=== PATIENT | female | born 1950 | race Caucasian/White ===

== ENCOUNTER 2018-06-24 08:36 | Emergency (ER) | payer MEDICARE, OTHER ==
[~2018-06-24] VITALS: Ht 162.6 cm; Wt 56.7 kg
[~2018-06-24 08:36] MED LIST: ACHD5005 PO; AMLO5TAB2 PO; CITA10TA70 PO; DOXY100C2 PO; FOLI1TAB24 PO; FURO40TA PO; HYDR-3714 PO; LEVO125T PO; MULT1CAP27 PO; NADO40TA PO; OMEP40CA36 PO; ROPI0.5T PO; SPIR100T37 PO; URSO300C9 PO
[2018-06-24] MEDS ORDERED: fentaNYL INJECTION 100 MCG/2 ML AMP ONE (08:39)
--- OUTSIDE RECORDS SUMMARY | 2018-06-24 08:43 | XMS REPORT | Clinical Summary ---
Author Author [facility] Organization [facility] Address Unknown Phone Unavailable Care Team Providers Care Drop Forge Operator Name Role Phone Gunnar Starks MD Unavailable Colin Child DO PCP Karla Stapleton RN Unavailable Unavailable Julio Khanna RN Unavailable Unavailable Meagan Hagen RN Unavailable Unavailable Samuel Garcia MD Unavailable Roseann Gorman RN Unavailable Unavailable Ashley Riley RN Unavailable Unavailable Karl Springer MD Unavailable Joann Kay Unavailable Leah Teresa RN Unavailable Unavailable Source Comments Some departments are not documenting in the electronic medical record. If you do not see the information that you expected, contact Release of Information in the Health Information Management department at [phone] for further assistance in locating additional records.[facility] Allergies Comments Active Allergy Reactions Severity Noted Date Amoxicillin-Pot DIARRHEA, Low 12/02/2017 Clavulanate NAUSEA AND VOMITING Codeine STOMACH Low 01/31/2013 UPSET, NAUSEA AND VOMITING Pt reported flu-like symptoms and feeling sick to her stomach Levofloxacin STOMACH Low 07/28/2017 UPSET, SEE COMMENTS Sulfa (Sulfonamide HIVES, RASH Medium 01/31/2013 Antibiotics) Medications End Date Status Medication Sig Dispensed Refills Start Date Active levothyroxine (SYNTHROID) Take 125 mcg 0 125 mcg tablet by mouth daily 30 minutes before breakfast. Active ursodiol (ACTIGALL) 300 Take 300 mg 0 mg capsule by mouth twice daily. Active cycloSPORINE (RESTASIS) Apply 1 Drop 0 0.05 % ophthalmic to both eyes emulsion twice daily. Active Lactoperoxi-Gluc Oxid-Pot Apply inside 0 Thio (BIOTENE mouth every ORALBALANCE) gel bedtime for dry mouth. Active acetaminophen (TYLENOL) Take 1 Tab by 30 Tab 0 500 mg tablet mouth every 6 6 hours as needed for Pain. Max of 4,000 mg of acetaminophen in 24 hours. Active prednisone (DELTASONE) 10 Take 10 mg by 0 mg tablet mouth daily with breakfast. Active cholecalciferol (VITAMIN Take 1,000 0 D-3) 1,000 units tablet Units by mouth daily. Active propranolol (INDERAL) 10 Take 10 mg by 0 mg tablet mouth twice daily. Active hydroxychloroquine Take 300 mg 0 (PLAQUENIL) 200 mg tablet by mouth daily. Take with food. Active pentoxifylline ER Take 400 mg 0 (TRENTAL) 400 mg tablet by mouth twice daily. Take with food. Active prednisolone acetate Apply 1 drop 0 (PRED FORTE) 1 % to both eyes ophthalmic suspension four times daily. Active gabapentin (NEURONTIN) Take 2 0 100 mg capsule capsules by 8 mouth three times daily. Active cetirizine (ZYRTEC) 10 mg Take 10 mg by 0 tablet mouth every morning. 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), 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), CREST (calcinosis, Raynaud's phenomenon, esophageal dysfunction, sclerodactyly, telangiectasia) (HCC) Active Problems Problem Noted Date CREST (calcinosis, Raynaud's phenomenon, esophageal dysfunction, 01/11/2018 sclerodactyly, telangiectasia) Non-pressure chronic ulcer of other part of left lower leg with necrosis of 12/02/2017 muscle Non-pressure chronic ulcer of other part of right lower leg with fat layer 12/02/2017 exposed Lymphedema 12/02/2017 Acute kidney failure 11/02/2017 Cellulitis 10/22/2017 Multiple fractures of pelvis 01/21/2016 Sialadenitis 11/22/2014 Overview: Bilateral, stone on CT on right with bilateral duct dilation throughout Sjogren's syndrome 11/22/2014 Knee pain, left anterior 12/26/2013 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 - Infectious disease was consulted to manage appropriate antibiotic therapy treatment - Changed Vanco to dapto due to DAX - Adult psychiatry was consulted to manage the patient with new onset delirium and altered mental status - Patient was started on risperidone in house to manage delirium with ambien and trazodone as sleep aids - Ambien was d/c due to adverse reaction - Medicine was consulted to manage a mildly increased Cr during the post operative period - Creatnine was continually elevated after fluid boluses - Norvasc was d/c'd - Rehab medicine was consulted - Rehab did not accept for IRF After discussing with family and patient. It was found best to have patient d/c home with home health. Patient is to continue abx therapy for 4 weeks. Outlined in d/c instructions. Discharged with drain in place. Tolerating PO diet Working well with PT Non-union of fracture 02/06/2013 Wound infection 01/31/2013 Encounters Care Team Description Date Type Specialty Keith Hackett MD 06/03/2018 Hospital Burn Surgery / Burn Care Encounter Ramona Bassett, RN Follow-up Phone Call 05/25/2018 Telephone Burn Surgery / Burn Care Keith Hackett MD 05/20/2018 Hospital Burn Surgery / Burn Care Encounter Ramona Bassett RN Follow Up 05/20/2018 Telephone Burn Surgery / Burn Care Ramona Bassett RN General Question 05/17/2018 Telephone Burn Surgery / Burn Care Keith Hackett MD 05/10/2018 Hospital Burn Surgery / Burn Care Encounter Keith Hackett MD 04/20/2018 Hospital Burn Surgery / Burn Care Encounter Keith Hackett MD General Question 04/14/2018 Telephone Burn Surgery / Burn Care Ramona Bassett RN Dressing Change 04/08/2018 Telephone Burn Surgery / Burn Care Keith Hackett MD 04/04/2018 Hospital Burn Surgery / Burn Care Encounter from Last 3 Months Immunizations Name Dates Previously Given Next Due Flu Vaccine Trivalent=>3 02/09/2013 Yo (Preservative Free) Family History Medical History Relation Name Comments Arthritis-rheumatoid Other Melanoma Neg Hx Relation Name Status Comments Other Social History Date Tobacco Use Types Packs/Day Years Used Never Smoker Smokeless Tobacco: Never Used Tobacco Cessation: Counseling Given: Yes Alcohol Use Drinks/Week oz/Week Comments No 0 Standard 0.0 drinks or equivalent Sex Assigned at Date Recorded Not on file Industry Job Start Date Occupation Not on file Not on file Not on file Travel End Travel History Travel Start No recent travel history available. Last Filed Vital Signs Time Taken Vital Sign Reading 06/03/2018 10:47 AM EQUIPMENT TESTER Blood Pressure 114/67 06/03/2018 10:47 AM EQUIPMENT TESTER Pulse 74 06/03/2018 10:47 AM EQUIPMENT TESTER Temperature 36.3 C (97.4 F) 06/03/2018 10:47 AM EQUIPMENT TESTER Respiratory Rate 18 06/03/2018 10:47 AM EQUIPMENT TESTER Oxygen Saturation 98% - Inhaled Oxygen - Concentration 01/25/2018 10:05 AM CDT Weight 65.8 kg (145 lb) 01/25/2018 10:05 AM CDT Height 154.9 cm (5' 1") 01/25/2018 10:05 AM CDT Body Mass Index 27.4 Plan of Treatment Health Maintenance Due Date Last Done Comments PHYSICAL (COMPREHENSIVE) 1956 EXAM DTAP/TDAP VACCINES (1 - 12/16/1967 Tdap) BREAST CANCER SCREENING 1989 COLORECTAL CANCER 12/16/1999 SCREENING SHINGLES RECOMBINANT 12/16/1999 VACCINE (1 of 2) OSTEOPOROSIS 2014 SCREENING/MONITORING PNEUMONIA (PCV13/PPSV23) 2014 VACCINES (1 of 2 - PCV13) INFLUENZA VACCINE 12/01/2017 02/09/2013, 03/01/2003 HEPATITIS C SCREENING Completed 02/07/2013 Results Not on filefrom Last 3 Months Insurance Payer Benefit Subscriber ID Type Phone Address Plan / Group MEDICARE MEDICARE xxxxxxxxxxx Medicare PART A AND B AETNA AETNA xxxxxxxxxx SUPPLEMENT Advance Directives Patient has advance care planning documents, and code status on file. For more information, please contact: [facility] [address] [place] [address] Date Inactivated Comments Code Status Date Activated 11/02/2017 5:04 PM Full Code 10/22/2017 7:13 PM Provider has discussed Code Status Yes w/Patient or Family? 01/24/2016 5:50 PM Full Code 01/21/2016 2:21 PM Provider has discussed Code Status No, discussion not w/Patient or Family? necessary based on Dx 02/28/2013 7:30 PM Full Code 02/20/2013 12:30 PM Provider has discussed Code Status Yes w/Patient or Family? 02/10/2013 2:50 PM Full Code 02/06/2013 4:59 PM Provider has discussed Code Status Yes w/Patient or Family?
--- OUTSIDE RECORDS SUMMARY | 2018-06-24 08:43 | XMS REPORT | Encounter Summary ---
Author Author [facility] Organization [facility] Address Unknown Phone Unavailable Care Team Providers Care Hedis Analyst Name Role Phone Gunnar Starks MD Unavailable Colin Child DO PCP Karla Stapleton RN Unavailable Unavailable Julio Khanna RN Unavailable Unavailable Meagan Hagen RN Unavailable Unavailable Samuel Garcia MD Unavailable Roseann Gorman RN Unavailable Unavailable Ashley Riley RN Unavailable Unavailable Karl Springer MD Unavailable Joann Kay Unavailable Leah Teresa RN Unavailable Unavailable Reason for Referral * Consult, Test & Treat (Routine) Referred By Contact Referred To Contact Status Reason Specialty Diagnoses / Procedures Keith Hackett MD [address] [place] [id number] [facility] [address] [place] [address] New Request Specialty Services Diagnoses Required 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, Raynaud's phenomenon, esophageal dysfunction, sclerodactyly, telangiectasia) (HCC) Reason for Visit * Reason Comments Wound Encounter Details Care Team Description Date Type Department Keith Hackett MD [address] [place] [address] [phone] 06/03/2018 Hospital Outpatient Burn and Wound Encounter Clinic [facility] [address] [place] [address] Social History Date Tobacco Use Types Packs/Day Years Used Never Smoker Smokeless Tobacco: Never Used Alcohol Use Drinks/Week oz/Week Comments No 0 Standard 0.0 drinks or equivalent Sex Assigned at Date Recorded Not on file Industry Job Start Date Occupation Not on file Not on file Not on file Travel End Travel History Travel Start No recent travel history available. as of this encounter Last Filed Vital Signs Time Taken Vital Sign Reading 06/03/2018 10:47 AM DIRECTOR OF STRATEGIC ALLIANCES Blood Pressure 114/67 06/03/2018 10:47 AM DIRECTOR OF STRATEGIC ALLIANCES Pulse 74 06/03/2018 10:47 AM DIRECTOR OF STRATEGIC ALLIANCES Temperature 36.3 C (97.4 F) 06/03/2018 10:47 AM DIRECTOR OF STRATEGIC ALLIANCES Respiratory Rate 18 06/03/2018 10:47 AM DIRECTOR OF STRATEGIC ALLIANCES Oxygen Saturation 98% - Inhaled Oxygen - Concentration - Weight - - Height - - Body Mass Index - in this encounter Functional Status Date of Assessment Functional Status Response 05/20/2018 Does the patient have a hearing impairment: No 05/20/2018 Does the patient have a visual impairment: Yes 05/20/2018 Does the patient have impaired ambulation: Yes 05/20/2018 Does the patient have an activity of daily living No (ADL) impairment: 05/20/2018 Does the patient have an instrumental activity of Yes daily living (IADL) impairment: Date of Assessment Cognitive Status Response 05/20/2018 Does the patient have a cognitive impairment: No as of this encounter Discharge Instructions * Patient Instructions* Keith Hackett MD - 06/03/2018 11:20 AM DIRECTOR OF STRATEGIC ALLIANCES Clean and dry Topical lidocaine 4% cream: Apply for 10-15 minutes, gently remove excess leaving very thin amount in ulcer base, dress as below Hydrofera blue ready: Please ensure that the plastic backing faces AWAY from the ulcer bed abd pads to cover Secure with 3M lite toes to knees Change dressings MWF Elevation RTC one week CTOR OF STRATEGIC ALLIANCES in this encounter Medications at Time of Discharge Start Date End Date Medication Sig Dispensed Refills 01/23/2016 acetaminophen (TYLENOL) Take 1 Tab by 30 Tab 0 500 mg tablet mouth every 6 hours as needed for Pain. Max of 4,000 mg of acetaminophen in 24 hours. 06/01/2018 ALPRAZolam (XANAX) 0.5 mg 0 tablet cetirizine (ZYRTEC) 10 mg Take 10 mg by 0 tablet mouth every morning. cholecalciferol (VITAMIN Take 1,000 0 D-3) 1,000 units tablet Units by mouth daily. cycloSPORINE (RESTASIS) Apply 1 Drop 0 0.05 % ophthalmic to both eyes emulsion twice daily. 11/02/2017 gabapentin (NEURONTIN) Take 2 0 100 mg capsule capsules by mouth three times daily. 06/01/2018 HYDROcodone/acetaminophen 0 (NORCO) 5/325 mg tablet hydroxychloroquine Take 300 mg 0 (PLAQUENIL) 200 mg tablet by mouth daily. Take with food. Lactoperoxi-Gluc Oxid-Pot Apply inside 0 Thio (BIOTENE mouth every ORALBALANCE) gel bedtime for dry mouth. levothyroxine (SYNTHROID) Take 125 mcg 0 125 mcg tablet by mouth daily 30 minutes before breakfast. 05/25/2018 morphine (MSIR) 2 mg/mL 0 oral solution oxyCODONE SR (OXYCONTIN) Take 20 mg by 0 20 mg tablet mouth every 6 hours pentoxifylline ER Take 400 mg 0 (TRENTAL) 400 mg tablet by mouth twice daily. Take with food. prednisolone acetate Apply 1 drop 0 (PRED FORTE) 1 % to both eyes ophthalmic suspension four times daily. prednisone (DELTASONE) 10 Take 10 mg by 0 mg tablet mouth daily with breakfast. propranolol (INDERAL) 10 Take 10 mg by 0 mg tablet mouth twice daily. ursodiol (ACTIGALL) 300 Take 300 mg 0 mg capsule by mouth twice daily. as of this encounter Progress Notes * Keith Hackett MD - 06/03/2018 11:06 AM DIRECTOR OF STRATEGIC ALLIANCES Name:Marlene Harvey :1950 Age: 67 y.o. Date of Service: 06/03/2018 Subjective: CREST with bilateral leg ulcers to the level of fat Past Medical History: Diagnosis Date Chronically dry eyes Cirrhosis of liver (HCC) Dry mouth Erosive gastritis Esophageal varices (HCC) Fracture GERD (gastroesophageal reflux disease) GI bleeding Hypothyroid Immune disorder (HCC) Osteopenia Raynaud's disease Sjogren's syndrome (HCC) Unspecified deficiency anemia Past Surgical History: Procedure Laterality Date HX WRIST FRACTURE SURGERY 1989 VESICOVAGINAL FISTULA REPAIR 2001 FEMUR FRACTURE SURGERY Left 07/2012 with harware removal 01/2013 HX TONSILLECTOMY family history includes Arthritis-rheumatoid in an other family member. Social History Socioeconomic History Marital status: Spouse name: Not on file Number of children: Not on file Years of education: Not on file Highest education level: Not on file Social Needs Financial resource strain: Not on file Food insecurity - worry: Not on file Food insecurity - inability: Not on file Transportation needs - medical: Not on file Transportation needs - non-medical: Not on file Occupational History Not on file Tobacco Use Smoking status: Never Smoker Smokeless tobacco: Never Used Substance and Sexual Activity Alcohol use: No Alcohol/week: 0.0 oz Drug use: No Sexual activity: Not on file Other Topics Concern Not on file Social History Narrative Not on file History of Present IllnessMarlene Harvey is a 67 y.o. female. Tolerating dressings. Hydrofera blue is improving the ulcer base with granulation tissue and less slough. Lidocaine 4% topically with dressing changes. Elevation. Moisturizing cream to perulcer skin. Had recent fall with concussion, facial bruising. Review of Systems Skin: Positive for wound. All other systems reviewed and are negative. Objective: acetaminophen (TYLENOL) 500 mg tablet Take 1 Tab by mouth every 6 hours as needed for Pain. Max of 4,000 mg of acetaminophen in 24 hours. ALPRAZolam (XANAX) 0.5 mg tablet cetirizine (ZYRTEC) 10 mg tablet Take 10 mg by mouth every morning. cholecalciferol (VITAMIN D-3) 1,000 units tablet Take 1,000 Units by mouth daily. cycloSPORINE (RESTASIS) 0.05 % ophthalmic emulsion Apply 1 Drop to both eyes twice daily. gabapentin (NEURONTIN) 100 mg capsule Take 2 capsules by mouth three times daily. HYDROcodone/acetaminophen (NORCO) 5/325 mg tablet hydroxychloroquine (PLAQUENIL) 200 mg tablet Take 300 mg by mouth daily. Take with food. Lactoperoxi-Gluc Oxid-Pot Thio (BIOTENE ORALBALANCE) gel Apply inside mouth every bedtime for dry mouth. levothyroxine (SYNTHROID) 125 mcg tablet Take 125 mcg by mouth daily 30 minutes before breakfast. morphine (MSIR) 2 mg/mL oral solution oxyCODONE SR (OXYCONTIN) 20 mg tablet Take 20 mg by mouth every 6 hours pentoxifylline ER (TRENTAL) 400 mg tablet Take 400 mg by mouth twice daily. Take with food. prednisolone acetate (PRED FORTE) 1 % ophthalmic suspension Apply 1 drop to both eyes four times daily. prednisone (DELTASONE) 10 mg tablet Take 10 mg by mouth daily with breakfast. propranolol (INDERAL) 10 mg tablet Take 10 mg by mouth twice daily. ursodiol (ACTIGALL) 300 mg capsule Take 300 mg by mouth twice daily. Vitals: 06/03/18 1047 BP: 114/67 Pulse: 74 Resp: 18 Temp: 36.3 C (97.4 F) TempSrc: Oral SpO2: 98% There is no height or weight on file to calculate BMI. Physical Exam Constitutional: She is oriented to person, place, and time. She appears well- developed. HENT: Head: Normocephalic and atraumatic. Eyes: Conjunctivae are normal. Pupils are equal, round, and reactive to light. Neck: Normal range of motion. Neck supple. Cardiovascular: Normal rate and regular rhythm. Pulmonary/Chest: Effort normal. Abdominal: Soft. Musculoskeletal: Normal range of motion. She exhibits edema. Neurological: She is alert and oriented to person, place, and time. Skin: Skin is warm and dry. Emerging granulation tissue with less slough Facial bruising with recent fall Psychiatric: She has a normal mood and affect. Her behavior is normal. Judgment and thought content normal. Wounds (NOT for Pressure Injuries) 12/02/17 1017 Left;Lower Leg Ulcer (not from pressure) (Active) 12/02/17 1017 Leg Wound Orientation: Left;Lower Wound Type: Ulcer (not from pressure) Wound Type:: Wound Description (Comments): Wound Image 06/03/2018 11:00 AM Wound Base Assessment Granulation;Moist;Slough;Penaloza 06/03/2018 11:00 AM Surrounding Skin Assessment Macerated 06/03/2018 11:00 AM Wound Site Closure None 05/10/2018 10:00 AM Wound Drainage Amount Copious 06/03/2018 11:00 AM Wound Drainage Description Serosanguineous 06/03/2018 11:00 AM Wound Dressing Status Changed 06/03/2018 11:00 AM Wound Dressing and / or Treatment Hydrofera Blue Ready 06/03/2018 11:00 AM Wound Length (cm) 15 cm 06/03/2018 11:00 AM Wound Width (cm) 20 cm 06/03/2018 11:00 AM Wound Depth (cm) 0.3 cm 06/03/2018 11:00 AM Wound Surface Area (cm^2) 300 cm^2 06/03/2018 11:00 AM Wound Volume (cm^3) 90 cm^3 06/03/2018 11:00 AM Wound Healing % (Wound Team Only) -100 06/03/2018 11:00 AM Wound Status (Wound Team Only) Being Treated 05/20/2018 10:00 AM Undermining in CM (Wound Team Only) 0 cm 05/20/2018 10:00 AM Tunneling in CM (Wound Team Only) 0 cm 05/20/2018 10:00 AM Number of days: 183 Wounds (NOT for Pressure Injuries) 12/02/17 1018 Right;Lower Leg Ulcer (not from pressure) (Active) 12/02/17 1018 Leg Wound Orientation: Right;Lower Wound Type: Ulcer (not from pressure) Wound Type:: Wound Description (Comments): Wound Image 06/03/2018 11:00 AM Wound Base Assessment Moist;Slough;Penaloza;Granulation 06/03/2018 11:00 AM Surrounding Skin Assessment Macerated 06/03/2018 11:00 AM Wound Site Closure None 06/03/2018 11:00 AM Wound Drainage Amount Copious 06/03/2018 11:00 AM Wound Drainage Description Serosanguineous 06/03/2018 11:00 AM Wound Dressing Status Changed 06/03/2018 11:00 AM Wound Dressing and / or Treatment Hydrofera Blue Ready 06/03/2018 11:00 AM Wound Length (cm) 16 cm 06/03/2018 11:00 AM Wound Width (cm) 17 cm 06/03/2018 11:00 AM Wound Depth (cm) 0.5 cm 06/03/2018 11:00 AM Wound Surface Area (cm^2) 272 cm^2 06/03/2018 11:00 AM Wound Volume (cm^3) 136 cm^3 06/03/2018 11:00 AM Wound Healing % (Wound Team Only) -769.57 06/03/2018 11:00 AM Wound Status (Wound Team Only) Being Treated 06/03/2018 11:00 AM Undermining in CM (Wound Team Only) 0 cm 05/20/2018 10:00 AM Tunneling in CM (Wound Team Only) 0 cm 05/20/2018 10:00 AM Bone/Muscle/Tendon Exposed (Wound Team Only) Tendon 05/20/2018 10:00 AM Associated Signs and Symptoms (Wound Team Only) Swelling 04/20/2018 10:00 AM Number of days: 183 Assessment and Plan: Clean and dry Topical lidocaine 4% cream: Apply for 10-15 minutes, gently remove excess leaving very thin amount in ulcer base, dress as below Hydrofera blue ready: Please ensure that the plastic backing faces AWAY from the ulcer bed abd pads to cover Secure with 3M lite toes to knees Change dressings MWF Elevation RTC one week CTOR OF STRATEGIC ALLIANCES in this encounter Plan of Treatment Order Schedule Name Priority Associated Diagnoses Ordered: 06/03/2018 AMB REFERRAL TO HOME CARE Routine 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
--- OUTSIDE RECORDS SUMMARY | 2018-06-24 08:43 | XMS REPORT | Encounter Summary ---
Author Author [facility] Organization [facility] Address Unknown Phone Unavailable Care Team Providers Care Supervising Appraiser Name Role Phone Gunnar Starks MD Unavailable Colin Child DO PCP Karla Stapleton RN Unavailable Unavailable Julio Khanna RN Unavailable Unavailable Meagan Hagen RN Unavailable Unavailable Samuel Garcia MD Unavailable Roseann Gorman RN Unavailable Unavailable Ashley Riley RN Unavailable Unavailable Karl Springer MD Unavailable Joann Kay Unavailable Leah Teresa RN Unavailable Unavailable Reason for Visit * Reason Comments Follow-up Phone Call Encounter Details Care Team Description Date Type Department Ramona Bassett, CRISS Follow-up Phone Call 05/25/2018 Telephone Outpatient [facility] [address] [place] [address] Social History Date Tobacco Use Types Packs/Day [...] travel history available. as of this encounter Functional Status Date of Assessment [...] cognitive impairment: No as of this encounter Miscellaneous Notes * Telephone Encounter - Ramona Bassett RN - 05/25/2018 2:16 PM CEMETERY MANAGER Called and spoke with gina about wounds and pain management. Reema said that patient still is in a lot of pain during dressing changes even with the xanax added in. Spoke to patient and this am and when asked about the lidocaine gel, the stated they hadn't gotten that. Instructed them to talk to the pharmacy about this since hopefully it will help. 1420 called brenda and he stated he was able to get to lidocaine. Also informed him to bring it with him to the appt here on Wednesday. Thank you Jen Bassett RN, BSN Wound /Ostomy Team Pager [phone] After Hours Wound/Ostomy team pager [phone] TERY MANAGER in this encounter Plan of Treatment Not on fileas of this encounter Visit Diagnoses Not on filein this encounter
--- OUTSIDE RECORDS SUMMARY | 2018-06-24 08:43 | XMS REPORT | Encounter Summary ---
Author Author [facility] Organization [facility] Address Unknown Phone Unavailable Care Team Providers Care Field Naturalist Name Role Phone Gunnar Starks MD Unavailable Colin Child DO PCP Karla Stapleton RN Unavailable Unavailable Julio Khanna RN Unavailable Unavailable Meagan Hagen RN Unavailable Unavailable Samuel Garcia MD Unavailable Roseann Gorman RN Unavailable Unavailable Ashley Riley RN Unavailable Unavailable Karl Springer MD Unavailable Joann Kay Unavailable Leah Teresa RN Unavailable Unavailable Reason for Visit * Reason Comments Follow Up Encounter Details Care Team Description Date Type Department Ramona Bassett, CRISS Follow Up 05/20/2018 Telephone Outpatient Burn and Wound Clinic [facility] [id number] [address] [place] [address] Social History Date Tobacco Use [...] Telephone Encounter - Ramona Bassett RN - 05/20/2018 3:[address] Child's office called stated that they ordered to 4% lidocaine to be applied to wounds on days that the hydrophera blue is changed and also ordered Xanax for the patient to take prior to the dressing change. HH updated ODIAL AIDE in this encounter Plan of Treatment Not on fileas of this encounter Visit Diagnoses Not on filein this encounter
--- OUTSIDE RECORDS SUMMARY | 2018-06-24 08:43 | XMS REPORT | Encounter Summary ---
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) Lymphedema CREST (calcinosis, Raynaud's phenomenon, esophageal dysfunction, sclerodactyly, telangiectasia) (HCC) Reason for Visit * Reason Comments Wound f/u visit Encounter Details Care Team Description Date Type Department Keith Hackett MD [address] [place] [address] [phone] 05/20/2018 Hospital Outpatient Burn and Wound Encounter Clinic [facility] G567 [address] [place] [address] Social History Date Tobacco Use Types Packs/Day [...] Vital Signs Time Taken Vital Sign Reading 05/20/2018 9:58 AM SECURITY ORDERLY Blood Pressure 113/62 05/20/2018 9:58 AM SECURITY ORDERLY Pulse 78 05/20/2018 9:58 AM SECURITY ORDERLY Temperature 36.5 C (97.7 F) 05/20/2018 9:58 AM SECURITY ORDERLY Respiratory Rate 18 05/20/2018 9:58 AM SECURITY ORDERLY Oxygen Saturation 93% - Inhaled Oxygen - Concentration - Weight [...] * Patient Instructions* Keith Hackett MD - 05/20/2018 10:38 AM SECURITY ORDERLY Elevation Hydrofera blue ready MWF May change abd pads daily as needed: Recommend Optilock rather than abds if available Consider Lidocaine 4% with dressing changes topically with dressing removal PCP to manage pain issues 3M lite or equivalent compression RTC one week RITY ORDERLY in this encounter Medications at Time of Discharge Start Date End Date Medication Sig Dispensed Refills 01/23/2016 acetaminophen (TYLENOL) Take 1 Tab by 30 Tab 0 500 mg tablet mouth every 6 hours as needed for Pain. Max of 4,000 mg of acetaminophen in 24 hours. cetirizine (ZYRTEC) 10 mg Take 10 mg by 0 tablet mouth every morning. cholecalciferol (VITAMIN Take 1,000 0 D-3) 1,000 units tablet Units by mouth daily. cycloSPORINE (RESTASIS) Apply 1 Drop 0 0.05 % ophthalmic to both eyes emulsion twice daily. 11/02/2017 gabapentin (NEURONTIN) Take 2 0 100 mg capsule capsules by mouth three times daily. hydroxychloroquine Take 300 mg 0 (PLAQUENIL) 200 mg tablet by mouth daily. Take with food. Lactoperoxi-Gluc Oxid-Pot Apply inside 0 Thio (BIOTENE mouth every ORALBALANCE) gel bedtime for dry mouth. levothyroxine (SYNTHROID) Take 125 mcg 0 125 mcg tablet by mouth daily 30 minutes before breakfast. pentoxifylline ER Take 400 mg 0 (TRENTAL) [...] 0 mg capsule by mouth twice daily. 11/11/2017 06/03/2018 oxyCODONE SR (OXYCONTIN) Take 1 tablet 0 40 mg tablet by mouth twice daily as of this encounter Progress Notes * Keith Hackett MD - 05/20/2018 10:13 AM SECURITY ORDERLY Name:Marlene Harvey :1950 Age: 67 y.o. Date of Service: 05/20/2018 Subjective: CREST Bilateral LE ulcers to the level of fat Lymphedema Past Medical History: Diagnosis Date Chronically dry eyes Cirrhosis of liver (HCC) Dry mouth Erosive gastritis Esophageal varices (HCC) Fracture GERD (gastroesophageal reflux disease) GI bleeding Hypothyroid Immune disorder (HCC) Osteopenia Raynaud's disease Sjogren's syndrome (HCC) Unspecified deficiency anemia Past Surgical History: Procedure Laterality Date HX WRIST FRACTURE SURGERY 1989 VESICOVAGINAL FISTULA REPAIR 2002 FEMUR FRACTURE SURGERY Left 07/2012 with harware [...] IllnessMarlene Harvey is a 67 y.o. female. Having pain with dressing changes. Discussed need for pain control with PCP and options of Lidocaine liquid 4% topically for dressing changes and increasing the dosage of Neurontin. Currently on high doses of narcotics. Discussed with PCP and pain management will be addressed by him. Granulation base much improved with Hydrofera blue. Review of Systems Constitutional: Positive for activity change. Musculoskeletal: Positive for gait problem. All other systems reviewed and are negative. Objective: acetaminophen (TYLENOL) 500 mg tablet Take 1 Tab by mouth every 6 hours as needed for Pain. Max of 4,000 mg of acetaminophen in 24 hours. cetirizine (ZYRTEC) 10 mg tablet Take 10 mg by mouth every morning. cholecalciferol (VITAMIN D-3) 1,000 units tablet Take 1,000 Units by mouth daily. cycloSPORINE (RESTASIS) 0.05 % ophthalmic emulsion Apply 1 Drop to both eyes twice daily. gabapentin (NEURONTIN) 100 mg capsule Take 2 capsules by mouth three times daily. hydroxychloroquine (PLAQUENIL) 200 mg tablet Take 300 mg by mouth daily. Take with food. Lactoperoxi-Gluc Oxid-Pot Thio (BIOTENE ORALBALANCE) gel Apply inside mouth every bedtime for dry mouth. levothyroxine (SYNTHROID) 125 mcg tablet Take 125 mcg by mouth daily 30 minutes before breakfast. oxyCODONE SR (OXYCONTIN) 40 mg tablet Take 1 tablet by mouth twice daily pentoxifylline ER (TRENTAL) 400 mg tablet Take [...] 300 mg by mouth twice daily. Vitals: 05/20/18 0958 BP: 113/62 Pulse: 78 Resp: 18 Temp: 36.5 C (97.7 F) SpO2: 93% There is no height or weight on file to calculate BMI. Physical Exam Constitutional: She is oriented to person, place, and time. She appears well- developed. HENT: Head: Normocephalic and atraumatic. Eyes: Conjunctivae are normal. Pupils are equal, round, and reactive to light. Neck: Normal range of motion. Cardiovascular: Normal rate and regular rhythm. Pulmonary/Chest: Effort normal. Abdominal: Soft. Musculoskeletal: Normal range of motion. She exhibits edema. Neurological: She is alert and oriented to person, place, and time. Skin: Skin is warm and dry. Granulation base with yellow slough Psychiatric: She has a normal mood and affect. Her behavior is normal. Judgment and thought content normal. Wounds (NOT for Pressure Injuries) 12/02/17 1017 Left;Lower Leg Ulcer (not from pressure) (Active) 12/02/17 1017 Leg Wound Orientation: Left;Lower Wound Type: Ulcer (not from pressure) Wound Type:: Wound Description (Comments): Wound Image 05/20/2018 10:00 AM Wound Base Assessment Granulation;Penaloza;Slough 05/20/2018 10:00 AM Surrounding Skin Assessment Macerated 05/20/2018 10:00 AM Wound Site Closure None 05/10/2018 10:00 AM Wound Drainage Amount Large 05/20/2018 10:00 AM Wound Drainage Description Serosanguineous 05/20/2018 10:00 AM Wound Dressing Status Changed 05/20/2018 10:00 AM Wound Dressing and / or Treatment Hydrofera Blue Ready;Abdominal Pad 05/10/2018 10 :00 AM Wound Length (cm) 16 cm 05/20/2018 10:00 AM Wound Width (cm) 20 cm 05/20/2018 10:00 AM Wound Depth (cm) 0.6 cm 05/20/2018 10:00 AM Wound Surface Area (cm^2) 320 cm^2 05/20/2018 10:00 AM Wound Volume (cm^3) 192 cm^3 05/20/2018 10:00 AM Wound Healing % (Wound Team Only) -326.67 05/20/2018 10:00 AM Wound Status (Wound Team Only) Being Treated 05/20/2018 10:00 AM Undermining in CM (Wound Team Only) 0 cm 05/20/2018 10:00 AM Tunneling in CM (Wound Team Only) 0 cm 05/20/2018 10:00 AM Number of days: 169 Wounds (NOT for Pressure Injuries) 12/02/17 1018 Right;Lower Leg Ulcer (not from pressure) (Active) 12/02/17 1018 Leg Wound Orientation: Right;Lower Wound Type: Ulcer (not from pressure) Wound Type:: Wound Description (Comments): Wound Image 05/20/2018 10:00 AM Wound Base Assessment Penaloza;Slough;Realitos;Granulation 05/20/2018 10:00 AM Surrounding Skin Assessment Macerated 05/20/2018 10:00 AM Wound Site Closure None 05/10/2018 10:00 AM Wound Drainage Amount Large 05/20/2018 10:00 AM Wound Drainage Description Serosanguineous 05/20/2018 10:00 AM Wound Dressing Status Changed 05/20/2018 10:00 AM Wound Dressing and / or Treatment Hydrofera Blue Ready;Abdominal Pad 05/10/2018 10 :00 AM Wound Length (cm) 15.4 cm 05/20/2018 10:00 AM Wound Width (cm) 19 cm 05/20/2018 10:00 AM Wound Depth (cm) 0.5 cm 05/20/2018 10:00 AM Wound Surface Area (cm^2) 292.6 cm^2 05/20/2018 10:00 AM Wound Volume (cm^3) 146.3 cm^3 05/20/2018 10:00 AM Wound Healing % (Wound Team Only) -835.42 05/20/2018 10:00 AM Wound Status (Wound Team Only) Being Treated 05/20/2018 10:00 AM Undermining in CM (Wound Team Only) 0 cm 05/20/2018 10:00 AM Tunneling in CM (Wound Team Only) 0 cm 05/20/2018 10:00 AM Bone/Muscle/Tendon Exposed (Wound Team Only) Tendon 05/20/2018 10:00 AM Associated Signs and Symptoms (Wound Team Only) Swelling 04/20/2018 10:00 AM Number of days: 169 Assessment and Plan: Elevation Hydrofera blue ready MWF May change abd pads daily as needed Consider Lidocaine 4% with dressing changes topically with dressing removal PCP to manage pain issues 3M lite or equivalent compression RTC one week RITY ORDERLY in this encounter Plan of Treatment Order Schedule Name Priority Associated Diagnoses Ordered: 05/20/2018 AMB REFERRAL TO HOME CARE Routine 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
--- OUTSIDE RECORDS SUMMARY | 2018-06-24 08:44 | XMS REPORT | Clinical Summary ---
Author Author [facility] Organization [facility] Address Unknown Phone Unavailable Care Team Providers Care Sodium Chlorite Operator Name Role Phone Colin Child MD PCP Allergies Active Allergy Reactions Severity Noted Date Comments Codeine 05/21/2015 Levofloxacin Other (See Comments), Low 07/28/2017 Pt reported flu-like Nausea Only symptoms and feeling sick to her stomach Sulfa (Sulfonamide 05/21/2015 Antibiotics) Current Medications Prescription Sig. Disp. Refills Start End Date Status Date furosemide (LASIX) 40 MG Take 40 mg by mouth. Active tablet levothyroxine (SYNTHROID, Take 0.125 mcg by mouth. Active LEVOTHROID) 125 MCG tablet omeprazole (PRILOSEC) 40 Take 40 mg by mouth 2 Active MG capsule (two) times a day. INTEGRA 125-40-3 mg cap 0 06/17/19 Active 16 MULTIVITAMIN ORAL Take by mouth daily. Active folic acid (FOLVITE) 800 Take 400 mcg by mouth Active MCG tablet daily. propranolol (INDERAL) 10 Take 1 tablet (10 mg 60 tablet 5 07/16/19 Active MG tablet total) by mouth 2 (two) 17 times a day. 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 tablet HYDROcodone-acetaminophen Take 1 tablet by mouth Active (NORCO) 5-325 mg per every 6 (six) hours as tablet needed for pain. doxycycline hyclate Take 100 mg by mouth 2 Active (VIBRAMYCIN) 100 MG (two) times a day. capsule acetaminophen (TYLENOL) Take 500 mg by mouth Active 500 MG tablet every 6 (six) hours as needed for pain. cholecalciferol, vitamin Take by mouth daily. Active D3, 5,000 unit Tab pentoxifylline (TRENTAL) Take 400 mg by mouth 2 Active 400 mg CR tablet (two) a day, in am and at noon. predniSONE (DELTASONE) 10 Take 10 mg by mouth Active MG tablet daily. Active Problems Problem Noted Date Hepatic cirrhosis (HCC) 05/15/2013 Overview: ICD-10 conversion Ascites 05/15/2013 Disorder of bone and cartilage 05/15/2013 Overview: ICD-10 conversion Hypothyroidism 05/15/2013 Overview: ICD-10 conversion Anemia 05/15/2013 Overview: ICD-10 conversion Esophageal varices with bleeding (HCC) Osteoporosis Family History Medical History Relation Name Comments Coronary artery disease Father Family history of acute myocardial infarction; Coronary artery disease Mother Family history of heart disease in male family member before age 55; Relation Name Status Comments Father Mother Social History Tobacco Use Types Packs/Day Years Used Date Never Smoker Smokeless Tobacco: Never Used Sex Assigned at Date Recorded Not on file Last Filed Vital Signs Vital Sign Reading Time Taken Blood Pressure 130/72 09/29/2017 2:31 PM CDT Pulse 83 09/29/2017 2:31 PM CDT Temperature 36.6 C (97.8 F) 09/29/2017 2:31 PM CDT Respiratory Rate 16 07/15/2016 3:09 PM CDT Oxygen Saturation 91% 05/10/2014 1:28 PM CANVAS CUTTER HAND Inhaled Oxygen - - Concentration Weight 64.4 kg (142 lb) 09/29/2017 2:31 PM CDT Height 162.6 cm (5' 4") 09/29/2017 2:31 PM CDT Body Mass Index 24.37 09/29/2017 2:31 PM CDT Plan of Treatment Health Maintenance Due Date Last Done Comments Hepatitis C Screen 1950 Medicare Annual Wellness 1950 Td # 1950 Colorectal Screening via 12/16/1999 Colonoscopy Mammogram Screening 12/16/1999 Zoster Vaccine# (1 of 2) 12/16/1999 Depression Screening 2014 PHQ-9 # Fall Risk Assessment # 2014 Pneumococcal Immunization 2014 65+ (1 of 2 - PCV13) Osteoporosis Screening 07/08/2015 07/07/2013 Influenza Vaccine (#1) 2018 02/09/2013 Results Not on filefrom Last 3 Months
--- OUTSIDE RECORDS SUMMARY | 2018-06-24 08:44 | XMS REPORT | Encounter Summary ---
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) Lymphedema CREST (calcinosis, Raynaud's phenomenon, esophageal dysfunction, sclerodactyly, telangiectasia) (HCC) Reason for Visit * Reason Comments Wound Encounter Details Care Team Description Date Type Department Keith Hackett MD [address] [place], [place] [id number] 05/10/2018 Hospital Outpatient Burn and Wound Encounter Clinic [facility] G567 [address] [place] [address] Social History Date Tobacco Use Types Packs/Day [...] Vital Signs Time Taken Vital Sign Reading 05/10/2018 10:30 AM PREPRESS SPECIALIST Blood Pressure 100/58 05/10/2018 10:30 AM PREPRESS SPECIALIST Pulse 67 05/10/2018 10:30 AM PREPRESS SPECIALIST Temperature 36.4 C (97.6 F) 05/10/2018 10:30 AM PREPRESS SPECIALIST Respiratory Rate 20 05/10/2018 10:30 AM PREPRESS SPECIALIST Oxygen Saturation 100% - Inhaled Oxygen - Concentration - Weight - - Height - - Body Mass Index - in this encounter Functional Status Date of Assessment Functional Status Response 02/18/2018 Does the patient have a hearing impairment: No 02/18/2018 Does the patient have a visual impairment: Yes 02/18/2018 Does the patient have impaired ambulation: Yes 02/18/2018 Does the patient have an activity of daily living No (ADL) impairment: 02/18/2018 Does the patient have an instrumental activity of Yes daily living (IADL) impairment: Date of Assessment Cognitive Status Response 02/18/2018 Does the patient have a cognitive impairment: No as of this encounter Discharge Instructions * Patient Instructions* Keith Hackett MD - 05/10/2018 11:08 AM PREPRESS SPECIALIST Daily compression wraps with ProFore (base layer, cast padding, Coban minimal stretched: Transition to 3M 2 layer lite when available Hydrofera blue with abd pads RTC one week Elevation Clean and dry RESS SPECIALIST in this encounter Medications at Time of [...] Progress Notes * Keith Hackett MD - 05/10/2018 10:44 AM PREPRESS SPECIALIST Name:Marlene Harvey :1950 Age: 67 y.o. Date of Service: 05/10/2018 Subjective: Bilateral leg ulcers CREST Past Medical History: Diagnosis Date Chronically dry [...] Harvey is a 67 y.o. female. Having excessive drainage from ulcers. Bonnie huynh is maintaining clean ulcer base. Recently hospitalized for "infection." Spent 8 days in the hospital. Recommend 3M lite and elevation with home health dressing change. Abd pads for drainage. Will contact HH to see what is available for the patient through their system. Review of Systems Skin: Positive for wound. [...] 300 mg by mouth twice daily. Vitals: 05/10/18 1030 BP: 100/58 Pulse: 67 Resp: 20 Temp: 36.4 C (97.6 F) TempSrc: Oral SpO2: 100% There is no height or weight on file to calculate BMI. Physical Exam Constitutional: She is oriented to person, place, and time. She appears well- developed. HENT: Head: Normocephalic and atraumatic. Eyes: Conjunctivae are normal. Pupils are equal, round, and reactive to light. Neck: Normal range of motion. Cardiovascular: Normal rate and regular rhythm. Pulmonary/Chest: Effort normal. Abdominal: Soft. Musculoskeletal: She exhibits edema. Neurological: She is alert and oriented to person, place, and time. Skin: Skin is warm and dry. Large open ulcers bilateral LE with minimal slough Psychiatric: She has a normal mood and affect. Her behavior is normal. Judgment and thought content normal. Wounds (NOT for Pressure Injuries) 12/02/17 1017 Left;Lower Leg Ulcer (not from pressure) (Active) 12/02/17 1017 Leg Wound Orientation: Left;Lower Wound Type: Ulcer (not from pressure) Wound Type:: Wound Description (Comments): Wound Image 04/20/2018 10:00 AM Wound Base Assessment Slough;Granulation 04/20/2018 10:00 AM Surrounding Skin Assessment Macerated;Edema 04/20/2018 10:00 AM Wound Site Closure None 04/20/2018 10:00 AM Wound Drainage Amount Large 04/20/2018 10:00 AM Wound Drainage Description Serosanguineous 04/20/2018 10:00 AM Wound Dressing Status Changed 04/20/2018 10:00 AM Wound Dressing and / or Treatment Kellee 04/20/2018 10:00 AM Wound Length (cm) 14.5 cm 04/20/2018 10:00 AM Wound Width (cm) 15.5 cm 04/20/2018 10:00 AM Wound Depth (cm) 0.8 cm 04/20/2018 10:00 AM Wound Surface Area (cm^2) 224.75 cm^2 04/20/2018 10:00 AM Wound Volume (cm^3) 179.8 cm^3 04/20/2018 10:00 AM Wound Healing % (Wound Team Only) -299.56 04/20/2018 10:00 AM Wound Status (Wound Team Only) Being Treated 04/20/2018 10:00 AM Undermining in CM (Wound Team Only) 0 cm 02/18/2018 10:00 AM Tunneling in CM (Wound Team Only) 0 cm 02/18/2018 10:00 AM Number of days: 159 Wounds (NOT for Pressure Injuries) 12/02/17 1018 Right;Lower Leg Ulcer (not from pressure) (Active) 12/02/17 1018 Leg Wound Orientation: Right;Lower Wound Type: Ulcer (not from pressure) Wound Type:: Wound Description (Comments): Wound Image 05/10/2018 10:00 AM Wound Base Assessment Slough;Granulation 05/10/2018 10:00 AM Surrounding Skin Assessment Macerated 05/10/2018 10:00 AM Wound Site Closure None 05/10/2018 10:00 AM Wound Drainage Amount Copious 05/10/2018 10:00 AM Wound Drainage Description Serosanguineous 05/10/2018 10:00 AM Wound Dressing Status Changed 05/10/2018 10:00 AM Wound Dressing and / or Treatment Kellee 04/20/2018 10:00 AM Wound Length (cm) 15.5 cm 05/10/2018 10:00 AM Wound Width (cm) 10.5 cm 05/10/2018 10:00 AM Wound Depth (cm) 0.6 cm 05/10/2018 10:00 AM Wound Surface Area (cm^2) 162.75 cm^2 05/10/2018 10:00 AM Wound Volume (cm^3) 97.65 cm^3 05/10/2018 10:00 AM Wound Healing % (Wound Team Only) -524.36 05/10/2018 10:00 AM Wound Status (Wound Team Only) Being Treated 04/20/2018 10:00 AM Undermining in CM (Wound Team Only) 0 cm 02/18/2018 10:00 AM Tunneling in CM (Wound Team Only) 0 cm 02/18/2018 10:00 AM Bone/Muscle/Tendon Exposed (Wound Team Only) Tendon 04/20/2018 10:00 AM Associated Signs and Symptoms (Wound Team Only) Swelling 04/20/2018 10:00 AM Number of days: 159 Wounds (NOT for Pressure Injuries) 03/18/18 1047 Left;Medial Leg Ulcer (not from pressure) (Active) 03/18/18 1047 Leg Wound Orientation: Left;Medial Wound Type: Ulcer (not from pressure) Wound Type:: Wound Description (Comments): Wound Image 05/10/2018 10:00 AM Wound Base Assessment Slough;Granulation 05/10/2018 10:00 AM Surrounding Skin Assessment Macerated 05/10/2018 10:00 AM Wound Site Closure None 05/10/2018 10:00 AM Wound Drainage Amount Copious 05/10/2018 10:00 AM Wound Drainage Description Serosanguineous 05/10/2018 10:00 AM Wound Dressing Status Changed 05/10/2018 10:00 AM Wound Dressing and / or Treatment Kellee 04/20/2018 10:00 AM Wound Length (cm) 16 cm 05/10/2018 10:00 AM Wound Width (cm) 15 cm 05/10/2018 10:00 AM Wound Depth (cm) 0.5 cm 05/10/2018 10:00 AM Wound Surface Area (cm^2) 240 cm^2 05/10/2018 10:00 AM Wound Volume (cm^3) 120 cm^3 05/10/2018 10:00 AM Wound Healing % (Wound Team Only) -540 05/10/2018 10:00 AM Wound Status (Wound Team Only) Being Treated 04/20/2018 10:00 AM Number of days: 53 Assessment and Plan: Daily compression wraps with ProFore (base layer, cast padding, Coban minimal stretched: Transition to 3M 2 layer lite when available Hydrofera blue with abd pads RTC one week Elevation Clean and dry RESS SPECIALIST in this encounter Plan of Treatment Order Schedule Name Priority Associated Diagnoses Ordered: 05/10/2018 AMB REFERRAL TO HOME CARE Routine 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
--- OUTSIDE RECORDS SUMMARY | 2018-06-24 08:44 | XMS REPORT | Encounter Summary ---
Author Author [facility] Organization [facility] Address Unknown Phone Unavailable Care Team Providers Care Quality Control Supervisor Name Role Phone Gunnar Starks MD Unavailable Colin Child DO PCP Karla Stapleton RN Unavailable Unavailable Julio Khanna RN Unavailable Unavailable Meagan Hagen RN Unavailable Unavailable Samuel Garcia MD Unavailable Roseann Gorman RN Unavailable Unavailable Ashley Riley RN Unavailable Unavailable Karl Springer MD Unavailable Joann Kay Unavailable Leah Teresa RN Unavailable Unavailable Reason for Visit * Reason Comments Dressing Change Encounter Details Care Team Description Date Type Department Ramona Bassett RN Dressing Change 04/08/2018 Telephone Outpatient Burn and Wound Clinic [facility] [id number] [place] [address] Social History Date Tobacco Use [...] Telephone Encounter - Ramona Bassett RN - 04/08/2018 12:38 PM GRAPHIC DESIGN TEACHER [employer] calling stating that Insurance will not send both the optilock and the Aquacel AG. Dr Hackett stating he wasn't to not do the Aquacel AG and just place the Optilock to the wounds directly. Pt may need to moisten them to help remove them. Called and informed pt and she is aware and understands. HIC DESIGN TEACHER in this encounter Plan of Treatment Not on fileas of this encounter Visit Diagnoses Not on filein this encounter
--- OUTSIDE RECORDS SUMMARY | 2018-06-24 08:44 | XMS REPORT | Encounter Summary ---
Author Author [facility] Organization [facility] Address Unknown Phone Unavailable Care Team Providers Care Nitroglycerin Nitrator Operator Batch Name Role Phone Gunnar Starks MD Unavailable Colin Child DO PCP Karla Stapleton RN Unavailable Unavailable Julio Khanna RN Unavailable Unavailable Meagan Hagen RN Unavailable Unavailable Samuel Garcia MD Unavailable Roseann Gorman RN Unavailable Unavailable Ashley Riley RN Unavailable Unavailable Karl Springer MD Unavailable Joann Kay Unavailable Leah Teresa RN Unavailable Unavailable Reason for Visit * Reason Comments Wound Encounter Details Care Team Description Date Type Department Keith Hackett MD [address] [place] [address] 04/04/2018 Hospital Outpatient Burn and Wound Encounter Clinic [facility] [id number] [place] [address] Social History Date Tobacco Use [...] Vital Signs Time Taken Vital Sign Reading 04/04/2018 11:41 AM PUBLICATIONS MANAGER Blood Pressure 88/64 04/04/2018 11:41 AM PUBLICATIONS MANAGER Pulse 81 04/04/2018 11:41 AM PUBLICATIONS MANAGER Temperature 36.5 C (97.7 F) 04/04/2018 11:41 AM PUBLICATIONS MANAGER Respiratory Rate 18 04/04/2018 11:41 AM PUBLICATIONS MANAGER Oxygen Saturation 98% - Inhaled Oxygen - [...] this encounter Discharge Instructions * Patient Instructions* Ketih Hackett MD - 04/04/2018 12:04 PM PUBLICATIONS MANAGER Elevation Clean and dry Aquacel Ag to cover open ulcers only daily Zinc oxide impregnated gauze to secure Aquacel Ag daily abd or optilock over areas to cover daily Secure optilock or abd with kerlix daily tubigrip compression toes to knees RTC 2 weeks ICATIONS MANAGER in this encounter Medications at Time of [...] Progress Notes * Keith Hackett MD - 04/04/2018 11:55 AM PUBLICATIONS MANAGER Name:Marlene Harvey :1950 Age: 67 y.o. Date of Service: 04/04/2018 Subjective: CREST Bilateral LE leg ulcers to the level of fat Lymphedema [...] in an other family member. Social History Social History Marital status: Spouse name: N/A Number of children: N/A Years of education: N/A Occupational History Not on file. Social History Main Topics Smoking status: Never Smoker Smokeless tobacco: Never Used Alcohol use No Drug use: No Sexual activity: Not on file Other Topics Concern Not on file Social History Narrative No narrative on file History of Present IllnessMarlene Harvey is a 67 y.o. female. Having fissures to fingers which have been painful: Vasolex Rx given BID #60 grams. Having drainage to . [facility] Ag to open ulcers, secure with zinc oxide impregnated gauze, abd pad (Optilock), kerix and tubigrip compression daily if needed. RTC 2 weeks. Review of Systems Constitutional: Negative. HENT: Negative. Eyes: Negative. Respiratory: Negative. Cardiovascular: Negative. Gastrointestinal: Negative. Endocrine: Negative. Genitourinary: Negative. Musculoskeletal: Negative. Skin: Positive for wound. Allergic/Immunologic: Negative. Neurological: Negative. Hematological: Negative. Psychiatric/Behavioral: Negative. Objective: acetaminophen (TYLENOL) 500 mg tablet Take [...] 300 mg by mouth twice daily. Vitals: 04/04/18 1141 BP: (!) 88/64 Pulse: 81 Resp: 18 Temp: 36.5 C (97.7 F) TempSrc: Oral SpO2: 98% There is no height or weight on file to calculate BMI. Physical Exam Constitutional: She is oriented to person, place, and time. She appears well- developed. HENT: Head: Normocephalic and atraumatic. Eyes: Pupils are equal, round, and reactive to light. Conjunctivae are normal. Neck: Normal range of motion. Cardiovascular: Normal rate and regular rhythm. Pulmonary/Chest: Effort normal. Abdominal: Soft. Musculoskeletal: Normal range of motion. She exhibits edema. Neurological: She is alert and oriented to person, place, and time. Skin: Skin is warm and dry. Moist slough filled ulcers bilateral LE Fingers have linear fissures near nails, painful Psychiatric: She has a normal mood and affect. Her behavior is normal. Judgment and thought content normal. Wounds (NOT for Pressure Injuries) 12/02/17 1017 Left;Lower Leg Ulcer (not from pressure) (Active) 12/02/17 1017 Leg Wound Orientation: Left;Lower Wound Type: Ulcer (not from pressure) Wound Type:: Wound Description (Comments): Wound Image 04/04/2018 11:00 AM Wound Base Assessment Slough;Coinjock 04/04/2018 11:00 AM Surrounding Skin Assessment Macerated;Edema 04/04/2018 11:00 AM Wound Site Closure None 04/04/2018 11:00 AM Wound Drainage Amount Large 04/04/2018 11:00 AM Wound Drainage Description Serosanguineous 04/04/2018 11:00 AM Wound Dressing Status Changed 04/04/2018 11:00 AM Wound Dressing and / or Treatment Other (Comment) 03/18/2018 10:00 AM Wound Length (cm) 14 cm 04/04/2018 11:00 AM Wound Width (cm) 14 cm 04/04/2018 11:00 AM Wound Depth (cm) 0.5 cm 04/04/2018 11:00 AM Wound Surface Area (cm^2) 196 cm^2 04/04/2018 11:00 AM Wound Volume (cm^3) 98 cm^3 04/04/2018 11:00 AM Wound Healing % (Wound Team Only) -117.78 04/04/2018 11:00 AM Wound Status (Wound Team Only) Being Treated 03/18/2018 10:00 AM Undermining in CM (Wound Team Only) 0 cm 02/18/2018 10:00 AM Tunneling in CM (Wound Team Only) 0 cm 02/18/2018 10:00 AM Number of days: 123 Wounds (NOT for Pressure Injuries) 12/02/17 1018 Right;Lower Leg Ulcer (not from pressure) (Active) 08/02/18 1018 Leg Wound Orientation: Right;Lower Wound Type: Ulcer (not from pressure) Wound Type:: Wound Description (Comments): Wound Image 04/04/2018 11:00 AM Wound Base Assessment Slough;Granulation;Moist 04/04/2018 11:00 AM Surrounding Skin Assessment Macerated 04/04/2018 11:00 AM Wound Site Closure None 04/04/2018 11:00 AM Wound Drainage Amount Large 04/04/2018 11:00 AM Wound Drainage Description Serosanguineous 04/04/2018 11:00 AM Wound Dressing Status Changed 03/18/2018 10:00 AM Wound Dressing and / or Treatment Other (Comment);Foam (Biatain) 03/18/2018 10: 00 AM Wound Length (cm) 14.8 cm 04/04/2018 11:00 AM Wound Width (cm) 9 cm 04/04/2018 11:00 AM Wound Depth (cm) 0.6 cm 04/04/2018 11:00 AM Wound Surface Area (cm^2) 133.2 cm^2 04/04/2018 11:00 AM Wound Volume (cm^3) 79.92 cm^3 04/04/2018 11:00 AM Wound Healing % (Wound Team Only) -411 04/04/2018 11:00 AM Wound Status (Wound Team Only) Being Treated 03/18/2018 10:00 AM Undermining in CM (Wound Team Only) 0 cm 02/18/2018 10:00 AM Tunneling in CM (Wound Team Only) 0 cm 02/18/2018 10:00 AM Number of days: 123 Wounds (NOT for Pressure Injuries) 03/18/18 1047 Left;Medial Leg Ulcer (not from pressure) (Active) 03/18/18 1047 Leg Wound Orientation: Left;Medial Wound Type: Ulcer (not from pressure) Wound Type:: Wound Description (Comments): Wound Image 04/04/2018 11:00 AM Wound Base Assessment Slough;Moist;Coinjock 04/04/2018 11:00 AM Surrounding Skin Assessment Macerated;Edema 04/04/2018 11:00 AM Wound Site Closure None 04/04/2018 11:00 AM Wound Drainage Amount Large 04/04/2018 11:00 AM Wound Drainage Description Serosanguineous 04/04/2018 11:00 AM Wound Dressing Status Changed 03/18/2018 10:00 AM Wound Dressing and / or Treatment Other (Comment) 03/18/2018 10:00 AM Wound Length (cm) 8 cm 04/04/2018 11:00 AM Wound Width (cm) 5 cm 04/04/2018 11:00 AM Wound Depth (cm) 0.1 cm 04/04/2018 11:00 AM Wound Surface Area (cm^2) 40 cm^2 04/04/2018 11:00 AM Wound Volume (cm^3) 4 cm^3 04/04/2018 11:00 AM Wound Healing % (Wound Team Only) 78.67 04/04/2018 11:00 AM Number of days: 17 Assessment and Plan: Elevation Clean and dry Aquacel Ag to cover open ulcers only daily Zinc oxide impregnated gauze to secure Aquacel Ag daily abd or optilock over areas to cover daily Secure optilock or abd with kerlix daily tubigrip compression toes to knees RTC 2 weeks ICATIONS MANAGER in this encounter Plan of Treatment Not on fileas of this encounter Visit Diagnoses Diagnosis 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
--- OUTSIDE RECORDS SUMMARY | 2018-06-24 08:44 | XMS REPORT | Encounter Summary ---
Author Author [facility] Organization [facility] Address Unknown Phone Unavailable Care Team Providers Care Preschool Adviser Name Role Phone Gunnar Starks MD Unavailable Colin Child DO PCP Karla Stapleton RN Unavailable Unavailable Julio Khanna RN Unavailable Unavailable Meagan Hagen RN Unavailable Unavailable Samuel Garcia MD Unavailable Roseann Gorman RN Unavailable Unavailable Ashley Riley RN Unavailable Unavailable Karl Springer MD Unavailable Joann Kay Unavailable Leah Teresa RN Unavailable Unavailable Reason for Visit * Reason Comments General Question Encounter Details Care Team Description Date Type Department Ramona Bassett RN General Question 05/17/2018 Telephone Outpatient Burn and Wound Clinic [facility] [id number] [place] [address] Social History Date Tobacco Use [...] Telephone Encounter - Ramona Bassett RN - 05/17/2018 2:18 PM EARLY CHILDHOOD EDUCATOR AIDE HH calling about pts pain medications. States that pt is taking about 40mg of oxycodone a day and states that she is still having extreme pain. called and left message for HH to give me a Call. Will await return phone call form HH. Y CHILDHOOD EDUCATOR AIDE in this encounter Plan of Treatment Not on fileas of this encounter Visit Diagnoses Not on filein this encounter
--- OUTSIDE RECORDS SUMMARY | 2018-06-24 08:44 | XMS REPORT | Encounter Summary ---
Author Author [facility] Organization [facility] Address Unknown Phone Unavailable Care Team Providers Care Fac Engineer Name Role Phone Gunnar Starks MD Unavailable [...] Date Type Department Keith Hackett MD [address] [place] [address] General Question 04/14/2018 Telephone Outpatient Burn and Wound Clinic [facility] [id number] [place], [place] [id number] Social History Date Tobacco Use Types Packs/Day [...] encounter Miscellaneous Notes * Telephone Encounter - Bela Dexter RN - 04/14/2018 8:51 AM ON AIR PERSONALITY Pt called multiple times crying saying that her pain is uncontrollable. She has an appointment in the wound clinic next week, but wanted to get in sooner. I Let her know that we don't have any openings and that it sounds like she needs to go to a quick care or ER. [place] and asked me where to go. She said that she can't think strait d/t her pain and continued to cry, so at that point I told her she should call 911 and have EMS take her to the nearest ER. AIR PERSONALITY in this encounter Plan of Treatment Not on fileas of this encounter Visit Diagnoses Not on filein this encounter
--- OUTSIDE RECORDS SUMMARY | 2018-06-24 08:44 | XMS REPORT | Encounter Summary ---
Author Author [facility] Organization [facility] Address Unknown Phone Unavailable Care Team Providers Care Joggle Press Operator Name Role Phone Gunnar Starks MD [...] Date Type Department Keith Hackett MD [address] [place] [address] 04/20/2018 Hospital Outpatient Burn and Wound Encounter Clinic [facility] [id number] [place] [address] Social History Date Tobacco Use [...] Vital Signs Time Taken Vital Sign Reading - Blood Pressure - 04/20/2018 10:56 AM ANIMAL TECH Pulse 103 04/20/2018 10:56 AM ANIMAL TECH Temperature 36.6 C (97.9 F) 04/20/2018 10:56 AM ANIMAL TECH Respiratory Rate 20 04/20/2018 10:56 AM ANIMAL TECH Oxygen Saturation 95% - Inhaled Oxygen - Concentration - Weight [...] * Patient Instructions* Keith Hackett MD - 04/20/2018 11:35 AM ANIMAL TECH Elevation Clean and dry Kellee to clean ulcer bases Optilock tubigrip compression RTC 2 weeks AL TECH in this encounter Medications at Time of [...] Progress Notes * Keith Hackett MD - 04/20/2018 11:16 AM ANIMAL TECH Name:Marlene Harvey :1950 Age: 67 y.o. Date of Service: 04/20/2018 Subjective: CREST Bilateral non pressure ulcers to the lower extremities Past Medical History: Diagnosis Date Chronically dry [...] IllnessMarlene Harvey is a 67 y.o. female. Still having burning to the ulcers and has been placed on Neurontin 200mg TID. Will have the patient speak to her PCP regarding dosing. Ulcer bases are relatively clean with only marginal slough. Will now go to Kellee and Optilock daily with [employer] in the periwound. RTC 2 weeks. Continue to elevate. Review of Systems Constitutional: Negative. HENT: Negative. [...] 300 mg by mouth twice daily. Vitals: 04/20/18 1056 Pulse: 103 Resp: 20 Temp: 36.6 C (97.9 F) TempSrc: Oral SpO2: 95% There is no height or weight on file to calculate BMI. Physical Exam Constitutional: She is oriented to person, place, and time. She appears well- developed and well-nourished. HENT: Head: Normocephalic and atraumatic. Eyes: Conjunctivae are normal. Pupils are equal, round, and reactive to light. Neck: Normal range of motion. Cardiovascular: Normal rate, regular rhythm and normal heart sounds. Pulmonary/Chest: Effort normal. Abdominal: Soft. Musculoskeletal: Normal range of motion. She exhibits edema. Neurological: She is alert and oriented to person, place, and time. Skin: Skin is warm. Clean granulation bases with marginal slough Psychiatric: She has a normal mood [...] (Comment) 03/18/2018 10:00 AM Wound Length (cm) 14.5 cm [...] cm 02/18/2018 10:00 AM Number of days: 139 Wounds (NOT for Pressure Injuries) 12/02/17 1018 Right;Lower Leg Ulcer (not from pressure) (Active) 12/02/17 1018 Leg Wound Orientation: Right;Lower Wound Type: Ulcer (not from pressure) Wound Type:: Wound Description (Comments): Wound Image 04/20/2018 10:00 AM Wound Base Assessment Slough;Granulation 04/20/2018 10:00 AM Surrounding Skin Assessment Macerated 04/20/2018 10:00 AM Wound Site Closure None 04/20/2018 10:00 AM Wound Drainage Amount Large 04/20/2018 10:00 AM Wound Drainage Description Serosanguineous 04/20/2018 10:00 AM Wound Dressing Status Changed 04/20/2018 10:00 AM Wound Dressing and / or Treatment Other (Comment);Foam (Biatain) 03/18/2018 10: 00 AM Wound Length (cm) 15.5 cm 04/20/2018 10:00 AM Wound Width (cm) 10.5 cm 04/20/2018 10:00 AM Wound Depth (cm) 0.6 cm 04/20/2018 10:00 AM Wound Surface Area (cm^2) 162.75 cm^2 04/20/2018 10:00 AM Wound Volume (cm^3) 97.65 cm^3 04/20/2018 10:00 AM Wound Healing % (Wound Team Only) -524.36 04/20/2018 10:00 AM Wound Status (Wound Team Only) Being Treated 04/20/2018 10:00 AM Undermining in CM (Wound Team Only) 0 cm 02/18/2018 10:00 AM Tunneling in CM (Wound Team Only) 0 cm 02/18/2018 10:00 AM Bone/Muscle/Tendon Exposed (Wound Team Only) Tendon 04/20/2018 10:00 AM Associated Signs and Symptoms (Wound Team Only) Swelling 04/20/2018 10:00 AM Number of days: 139 Wounds (NOT for Pressure Injuries) 03/18/18 1047 [...] (Comment) 03/18/2018 10:00 AM Wound Length (cm) 11.5 cm 04/20/2018 10:00 AM Wound Width (cm) 5.5 cm 04/20/2018 10:00 AM Wound Depth (cm) 0.5 cm 04/20/2018 10:00 AM Wound Surface Area (cm^2) 63.25 cm^2 04/20/2018 10:00 AM Wound Volume (cm^3) 31.62 cm^3 04/20/2018 10:00 AM Wound Healing % (Wound Team Only) -68.64 04/20/2018 10:00 AM Wound Status (Wound Team Only) Being Treated 04/20/2018 10:00 AM Number of days: 33 Assessment and Plan: Elevation Clean and dry Kellee to clean ulcer bases Optilock tubigrip compression RTC 2 weeks AL TECH in this encounter Plan of Treatment Not [...]
[2018-06-24] MEDS ORDERED: fentaNYL INJECTION 100 MCG/2 ML AMP IVP ONE ×2 (08:45→11:15)
--- OUTSIDE RECORDS SUMMARY | 2018-06-24 08:45 | XMS REPORT | Continuity of Care Document ---
Author Author [facility] Organization [facility] Address Unknown Phone Unavailable Allergies Active Description Code Type Severity Reaction Onset Reported/Identified Relationship to Patient Clinical Status Yes codeine [id number] Drug Allergy Unknown VOMITING 10/03/2014 Yes Sulfa (Sulfonamide Antibiotics) [id number] Drug Allergy Unknown RASH 2014 Medications Medication Packaging Start Date Stop Date Route Dosage Sig VITAMIN D2 Capsule 01/25/2017 50,000 unit HYDROXYCHLOROQUINE SULFATE Tablet 01/25/2017 200 mg PROLIA Syringe 03/13/2017 60 mg/mL ZOFRAN ODT Tablet 03/30/2017 03/31/2017 4 mg Problems Date Dx Coded Attending Type Code Diagnosis Diagnosed By 10/02/2014 CHIDI MIDDLETON, LILLIAM Joy Ot 784.2 10/03/2014 SULTANA GALLOWAY DO Ot 527.2 10/03/2014 SULTANA GALLOWAY DO Ot 571.5 10/03/2014 SULTANA GALLOWAY DO Ot 710.2 10/03/2014 SULTANA GALLOWAY DO Ot V72.63 10/03/2014 SULTANA GALLOWAY DO Ot V72.83 10/03/2014 SULTANA GALLOWAY DO Ot V74.8 10/05/2014 CHIDI MIDDLETON, LILLIAM Joy Ot 527.3 10/19/2014 SULTANA GALLOWAY DO Ot 527.2 10/19/2014 SULTANA GALLOWAY DO Ot 571.5 10/19/2014 SULTANA GALLOWAY DO Ot 710.2 10/19/2014 SULTANA GALLOWAY DO Ot V72.63 10/19/2014 SULTANA GALLOWAY DO Ot V72.83 10/19/2014 SULTANA GALLOWAY DO Ot V74.8 10/23/2014 SULTANA GALLOWAY DO Ot 527.2 10/23/2014 SULTANA GALLOWAY DO Ot 571.5 10/23/2014 SULTANA GALLOWAY DO Ot 710.2 10/23/2014 SULTANA GALLOWAY DO Ot V72.63 10/23/2014 NILESH SULTANA SIDHU Ot V72.83 10/23/2014 SULTANA GALLOWAY DO Ot V74.8 05/30/2015 SULTAAN GALLOWAY DO Ot 527.2 05/30/2015 SULTANA GALLOWAY DO Ot 571.5 05/30/2015 SULTANA GALLOWAY DO Ot 710.2 05/30/2015 SULTANA GALLOWAY DO Ot V72.63 05/30/2015 NILESH SULTANA SIDHU Ot V72.83 05/30/2015 SULTANA GALLOWAY DO Ot V74.8 01/07/2017 Kell Lakhani L88 Pyoderma gangrenosum 01/07/2017 Kell Lakhani 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 01/07/2017 Kell Lakhani 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 syndrome with keratoconjunctivitis 01/07/2017 Kell Lakhani 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 01/09/2017 Kell Lakhani D64.9 Anemia, unspecified 01/09/2017 Kell Lakhani 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 01/09/2017 Kell Lakhani I73.01 Raynaud's syndrome with gangrene 01/09/2017 Kell Lakhani K74.3 Primary biliary cirrhosis 01/09/2017 Kell Lakhani L88 Pyoderma gangrenosum 01/09/2017 Kell Lakhani 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 01/09/2017 Kell Lakhani 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 syndrome with keratoconjunctivitis 01/09/2017 Kell Lakhani N18.9 CKD 01/09/2017 Kell Lakhani Z79.52 retirement (current) use of systemic steroids 01/18/2017 Kell Lakhani D64.9 Anemia, unspecified 01/18/2017 Kell Lakhani 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 01/18/2017 Kell Lakhani I73.01 Raynaud's syndrome with gangrene 01/18/2017 Kell Lakhani K74.3 Primary biliary cirrhosis 01/18/2017 Kell Lakhani L88 Pyoderma gangrenosum 01/18/2017 Kell Lakhani 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 01/18/2017 Kell Lakhani 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 syndrome with keratoconjunctivitis 01/18/2017 Kell Lakhani N18.9 CKD 01/18/2017 Kell Lakhani Z79.52 retirement (current) use of systemic steroids 01/24/2017 Kell Lakhani D64.9 Anemia, unspecified 01/24/2017 Kell Lakhani 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 01/24/2017 Kell Lakhani E55.9 Vitamin D deficiency, unspecified 01/24/2017 Kell Lakhani I73.01 Raynaud's syndrome with gangrene 01/24/2017 Kell Lakhani K74.3 Primary biliary cirrhosis 01/24/2017 Kell Lakhani L88 Pyoderma gangrenosum 01/24/2017 Kell Lakhani 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 01/24/2017 Kell Lakhani 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 syndrome with keratoconjunctivitis 01/24/2017 Kell Lakhani N18.9 CKD 01/24/2017 Kell Lakhani R76.0 Raised antibody titer 01/24/2017 Kell Lakhani Z79.52 retirement (current) use of systemic steroids 01/25/2017 Kell Lakhani D64.9 Anemia, unspecified 01/25/2017 Kell Lakhani 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 01/25/2017 Kell Lakhani E55.9 Vitamin D deficiency, unspecified 01/25/2017 Kell Lakhani I73.01 Raynaud's syndrome with gangrene 01/25/2017 Kell Lakhani K74.3 Primary biliary cirrhosis 01/25/2017 Kell Lakhani L88 Pyoderma gangrenosum 01/25/2017 Kell Lakhani M05.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/o org/sys involv 01/25/2017 Kell Lakhani 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 01/25/2017 Kell Lakhani 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 syndrome with keratoconjunctivitis 01/25/2017 Kell Lakhani M85.89 [facility] disrd of bone density and structure, multiple sites 01/25/2017 KarGelaKell W N18.9 CKD 01/25/2017 Kell Lakhani R76.0 Raised antibody titer 01/25/2017 Kell Lakhani 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 01/28/2017 Kell Lakhani D64.9 Anemia, unspecified 01/28/2017 Kell Lakhani 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 01/28/2017 Kell Lakhani E55.9 Vitamin D deficiency, unspecified 01/28/2017 Kell Lakhani I73.01 Raynaud's syndrome with gangrene 01/28/2017 Kell Lakhani K74.3 Primary biliary cirrhosis 01/28/2017 Kell Lakhani L88 Pyoderma gangrenosum 01/28/2017 Kell Lahkani 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 01/28/2017 Kell Lakhani 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 syndrome with keratoconjunctivitis 01/28/2017 Kell Lakhani N18.9 CKD 01/28/2017 Kell Lakhani R76.0 Raised antibody titer 01/28/2017 Kell Lakhani 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 01/29/2017 Kell Lakhani D64.9 Anemia, unspecified 01/29/2017 Kell Lakhani 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 01/29/2017 Kell Lakhani E55.9 Vitamin D deficiency, unspecified 01/29/2017 Kell Lakhani I73.01 Raynaud's syndrome with gangrene 01/29/2017 Kell Lakhani K74.3 Primary biliary cirrhosis 01/29/2017 Kell Lakhani L88 Pyoderma gangrenosum 01/29/2017 Kell Lakhani 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 01/29/2017 Kell Lakhani 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 syndrome with keratoconjunctivitis 01/29/2017 Kell Lakhani N18.9 CKD 01/29/2017 Kell Lakhani R76.0 Raised antibody titer 01/29/2017 Kell Lakhani Z79.52 retirement (current) use of systemic steroids 01/29/2017 Kell Lakhani D64.9 Anemia, unspecified 01/29/2017 Kell Lakhani 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 01/29/2017 Kell Lakhani E55.9 Vitamin D deficiency, unspecified 01/29/2017 Kell Lakhani I73.01 Raynaud's syndrome with gangrene 01/29/2017 Kell Lakhani K74.3 Primary biliary cirrhosis 01/29/2017 Kell Lakhani L88 Pyoderma gangrenosum 01/29/2017 Kell Lakhani M05.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/o org/sys involv 01/29/2017 Kell Lakhani 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 01/29/2017 Kell Lakhani 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 syndrome with keratoconjunctivitis 01/29/2017 Kell Lakhani M85.89 Oth disrd of bone density and structure, multiple sites 01/29/2017 Kell Lakhani N18.9 CKD 01/29/2017 Kell Lakhani R76.0 Raised antibody titer 01/29/2017 Kell Lakhani 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 02/01/2017 Kell Lakhani D64.9 Anemia, unspecified 02/01/2017 Kell Lakhani 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 02/01/2017 Kell Lakhani E55.9 Vitamin D deficiency, unspecified 02/01/2017 Kell Lakhani I73.01 Raynaud's syndrome with gangrene 02/01/2017 Kell Lakhani K74.3 Primary biliary cirrhosis 02/01/2017 Kell Lakhani L88 Pyoderma gangrenosum 02/01/2017 Kell Lakhani M05.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/o org/sys involv 02/01/2017 Kell Lakhani 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 02/01/2017 Kell Lakhani 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 syndrome with keratoconjunctivitis 02/01/2017 Kell Lakhani M85.89 Oth disrd of bone density and structure, multiple sites 02/01/2017 Kell Lakhani N18.9 CKD 02/01/2017 Kell Lakhani R76.0 Raised antibody titer 02/01/2017 Kell Lakhani Z79.52 retirement (current) use of systemic steroids 03/12/2017 Kell Lakhani M81.0 Age-related osteoporosis w/o current pathological fracture 03/30/2017 Kell Lakhani D64.9 Anemia, unspecified 03/30/2017 Kell Lakhani 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 03/30/2017 Kell Lakhani E55.9 Vitamin D deficiency, unspecified 03/30/2017 Kell Lakhani I73.01 Raynaud's syndrome with gangrene 03/30/2017 Kell Lakhani K74.3 Primary biliary cirrhosis 03/30/2017 Kell Lakhani L88 Pyoderma gangrenosum 03/30/2017 Kell Lakhani M05.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/o org/sys involv 03/30/2017 Kell Lakhani M25.571 Pain in right ankle and joints of right foot 03/30/2017 Kell Lakhani 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 03/30/2017 Kell Lakhani 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 syndrome with keratoconjunctivitis 03/30/2017 Kell Lakhani M85.89 Oth disrd of bone density and structure, multiple sites 03/30/2017 Kell Lakhani N18.9 CKD 03/30/2017 Kell Lakhani R76.0 Raised antibody titer 03/30/2017 Kell Lakhani 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 04/07/2017 Kell Lakhani D64.9 Anemia, unspecified 04/07/2017 Kell Lakhani 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 04/07/2017 Kell Lakhani E55.9 Vitamin D deficiency, unspecified 04/07/2017 Kell Lakhani I73.01 Raynaud's syndrome with gangrene 04/07/2017 Kell Lakhani K74.3 Primary biliary cirrhosis 04/07/2017 Kell Lakhani L88 Pyoderma gangrenosum 04/07/2017 Kell Lakhani M05.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/o org/sys involv 04/07/2017 Kell Lakhani M25.571 Pain in right ankle and joints of right foot 04/07/2017 Kell Lakhani 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 04/07/2017 Kell Lakhani 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 syndrome with keratoconjunctivitis 04/07/2017 Kell Lakhani M85.89 Oth disrd of bone density and structure, multiple sites 04/07/2017 Kell Lakhani N18.9 CKD 04/07/2017 Kell Lakhani R76.0 Raised antibody titer 04/07/2017 Kell Lakhani 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 Procedures Code Description [place] [address] JOINT SURVEY SINGLE VIEW 01/07/2017 51219 VITAMIN D 25 HYDROXY 01/07/2017 63039 ASSAY OF CRYOGLOBULIN 01/07/2017 17744 ENZYME CELL ACTIVITY 01/07/2017 73822 IMMUNOASSAY QUANT NOS NONAB 01/07/2017 65226 ASSAY OF BLOOD/URIC ACID 01/07/2017 79909 COMPLETE CBC W/AUTO DIFF WBC 01/07/2017 65484 EDUARDO VIPER VENOM DILUTED 01/07/2017 66655 THROMBIN TIME PLASMA 01/07/2017 04828 THROMBOPLASTIN INHIBITION 01/07/2017 68848 THROMBOPLASTIN TIME PARTIAL 01/07/2017 49780 ANTINUCLEAR ANTIBODIES 01/07/2017 33936 C-REACTIVE PROTEIN 01/07/2017 22763 CARDIOLIPIN ANTIBODY EA IG 01/07/2017 86201 COMPLEMENT ANTIGEN 01/07/2017 41864 CCP ANTIBODY 01/07/2017 28782 DNA ANTIBODY [place] 01/07/2017 77277 NUCLEAR ANTIGEN ANTIBODY 01/07/2017 08477 FLUORESCENT ANTIBODY TITER 01/07/2017 58306 RHEUMATOID FACTOR QUANT 01/07/2017 39011 TB TEST CELL IMMUN MEASURE 01/07/2017 32107 HEPATITIS C AB TEST 01/07/2017 67902 HEPATITIS B SURFACE AG EIA 01/07/2017 48281 OFFICE/OUTPATIENT VISIT NEW 01/07/2017 34445 URINALYSIS AUTO W/SCOPE 01/25/2017 58478 ASSAY OF CRYOGLOBULIN 01/25/2017 05569 HEPATITIS C REVRS TRNSCRPJ 01/25/2017 60203 OFFICE/OUTPATIENT VISIT EST 01/25/2017 64774 X-RAY EXAM OF ANKLE 03/30/2017 04919 COMPREHEN METABOLIC PANEL 03/30/2017 84900 THER/PROPH/DIAG INJ SC/IM 03/30/2017 20666 OFFICE/OUTPATIENT VISIT EST 03/30/2017 J0897 Denosumab injection 03/30/2017 Results Test Result Range Lupus Anticoagulant Comp - 01/07/17 11:30 Dilute Prothrombin Time(dPT) 52.2 sec 0.0-55.0 dPT Confirm Ratio 1.06 Ratio 0.00-1.40 Thrombin Time 23.1 sec 0.0-23.0 PTT-LA 32.6 sec 0.0-51.9 dRVVT 39.1 sec 0.0-47.0 Lupus Reflex Interpretation Comment: Complement C3 [Mass/volume] in Serum or Plasma - 01/07/17 11:30 Complement C3, Serum 69 mg/dL 82-167 Rheumatoid factor [Units/volume] in Serum or Plasma - 01/07/17 11:30 RA Latex Turbid. 15.1 IU/mL 0.0-13.9 SCL-70 extractable nuclear Ab [Units/volume] in Serum - 01/07/17 11:30 Antiscleroderma-70 Antibodies <0.2 AI 0.0-0.9 Calcidiol [Mass/volume] in Serum or Plasma - 01/07/17 11:30 Vitamin D, 25-Hydroxy 14.0 ng/mL 30.0-100.0 Hepatitis C virus Ab Signal/Cutoff in Serum or Plasma by Immunoassay - 11:30 Hep C Virus Ab 3.0 s/co ratio 0.0-0.9 Cyclic citrullinated peptide IgA+IgG Ab [Units/volume] in Serum or Plasma by Immunoassay - 01/07/17 11:30 CCP Antibodies IgG/IgA 46 units 0-19 QuantiFERON TB Gold (In Tube) - 01/07/17 11:30 QuantiFERON Incubation Comment QuantiFERON In Tube - 01/07/17 11:30 QuantiFERON TB Gold Negative Negative QuantiFERON Criteria Comment QuantiFERON TB Ag Value 0.14 IU/mL QuantiFERON Nil Value 0.09 IU/mL QuantiFERON Mitogen Value 8.30 IU/mL QFT TB Ag minus Nil Value 0.05 IU/mL Interpretation: Comment Urate [Mass/volume] in Serum or Plasma - 01/07/17 11:30 Uric Acid, Serum 7.5 mg/dL 2.5-7.1 HBsAg Screen - 01/07/17 11:30 HBsAg Screen Negative Negative ANCA Panel - 01/07/17 11:30 Antimyeloperoxidase (MPO) Abs <9.0 U/mL 0.0-9.0 Antiproteinase 3 (PA-3) Abs <3.5 U/mL 0.0-3.5 Cytoplasmic (C-ANCA) <1:20 titer Neg:<1:20 Perinuclear (P-ANCA) <1:20 titer Neg:<1:20 Atypical pANCA <1:20 titer Neg:<1:20 C reactive protein [Mass/volume] in Serum or Plasma - 01/07/17 11:30 C-Reactive Protein, Quant 2.4 mg/L 0.0-4.9 Antinuclear Antibodies, IFA - 01/07/17 11:30 Antinuclear Antibodies, IFA Negative Request Problem - 01/07/17 11:30 Request Problem TNP SLE Profile C - 01/07/17 11:30 Anti-DNA (DS) Ab Qn <1 IU/mL 0-9 SALES CLERK SUPERVISOR Antibodies <0.2 AI 0.0-0.9 Hartmann Antibodies <0.2 AI 0.0-0.9 Sjogren's Anti-SS-A >8.0 AI 0.0-0.9 Sjogren's Anti-SS-B <0.2 AI 0.0-0.9 CBC With Differential/Platelet - 01/07/17 11:30 WBC 6.8 x10E3/uL 3.4-10.8 RBC 4.16 x10E6/uL 3.77-5.28 Hemoglobin 12.8 g/dL 11.1-15.9 Hematocrit 39.1 % 34.0-46.6 MCV 94 fL 79-97 MCH 30.8 pg 26.6-33.0 MCHC 32.7 g/dL 31.5-35.7 RDW 17.4 % 12.3-15.4 Platelets 97 x10E3/uL 150-379 Neutrophils 78 % Lymphs 15 % Monocytes 6 % Eos 1 % Basos 0 % Neutrophils (Absolute) 5.2 x10E3/uL 1.4-7.0 Lymphs (Absolute) 1.1 x10E3/uL 0.7-3.1 Monocytes(Absolute) 0.4 x10E3/uL 0.1-0.9 Eos (Absolute) 0.1 x10E3/uL 0.0-0.4 Baso (Absolute) 0.0 x10E3/uL 0.0-0.2 Immature Granulocytes 0 % Immature Grans (Abs) 0.0 x10E3/uL 0.0-0.1 Hematology Comments: Note: Thiopurine Methyltransferase - 01/07/17 11:30 TPMT Activity 29.0 Units/mL RBC Interpretation: Comment Methodology Comment Anticardiolip Ab, IgA/G/M, Qn - 01/07/17 11:30 Anticardiolipin Ab,IgG,Qn <9 GPL U/mL 0-14 Anticardiolipin Ab,IgM,Qn 17 MPL U/mL 0-12 Anticardiolipin Ab,IgA,Qn <9 APL U/mL 0-11 Beta-2 Glycoprotein I Ab,G,A,M - 01/07/17 11:30 Beta-2 Glycoprotein I Ab, IgG <9 GPI IgG units 0-20 Beta-2 Glycoprotein I Ab, IgA <9 GPI IgA units 0-25 Beta-2 Glycoprotein I Ab, IgM 14 GPI IgM units 0-32 Cryoglobulin, Ql, Serum, Rflx - 01/07/17 11:30 Cryoglobulin, Ql, Serum, Rflx TNP Complement C4 [Mass/volume] in Serum or Plasma - 01/07/17 11:30 Complement C4, Serum 7 mg/dL 14-44 Urinalysis, Complete - 01/25/17 11:35 Specific Zenia 1.011 1.005-1.030 pH 7.0 5.0-7.5 Urine-Color Yellow Yellow Appearance Clear Clear WBC Esterase 1+ Negative Protein Negative Negative/Trace Glucose Negative Negative Ketones Negative Negative Occult Blood 3+ Negative Bilirubin Negative Negative Urobilinogen,Semi-Qn 0.2 mg/dL 0.2-1.0 Nitrite, Urine Negative Negative Microscopic Examination See below: Microscopic Examination - 01/25/17 11:35 WBC 0-5 /hpf 0 - 5 RBC 0-2 /hpf 0 - 2 Epithelial Cells (non renal) 0-10 /hpf 0 - 10 Bacteria Many None seen/Few Casts None seen /lpf None seen HCV RNA by PCR, Qn Rfx Carmen - 01/25/17 11:35 Hepatitis C Quantitation HCV Not Detected IU/mL HCV log10 TNP log10 IU/mL Test Information: Comment HCV Genotype TNP Cryoglobulin, Ql, Serum, Rflx - 01/25/17 11:35 Cryoglobulin, Ql, Serum, Rflx Comment None detected Encounters ACCT No. Visit Date/Time Discharge Status Pt. Type Provider Facility Loc./Unit Complaint [id number] 10/05/2014 08:15:00 10/05/2014 13:15:00 DIS Outpatient LILLIAM MURILLO MD [facility] [id number] 10/02/2014 14:59:00 10/02/2014 23:59:59 CLS Outpatient SULTANA GALLOWAY DO [facility] PREOP [id number] 09/23/2013 13:30:00 09/23/2013 23:59:59 CLS Outpatient LILLIAM MURILLO MD [facility] LABNPT [id number] 06/24/2018 08:39:00 ACT Emergency MIGUEL CARRILLO DO [facility] ER FS FALL, RT HIP PAIN [id number] 12/22/2017 09:34:00 12/22/2017 23:59:59 CLS Outpatient Carlos Fernandes [id number] 04/12/2017 09:49:00 04/12/2017 23:59:59 CLS Outpatient Carlos Fernandes [id number] 03/30/2017 13:30:00 03/30/2017 23:59:59 CLS Outpatient Kell Lakhani [id number] 03/30/2017 11:52:00 03/30/2017 23:59:59 CLS Outpatient Kell Lakhani [id number] 03/13/2017 08:41:00 03/13/2017 23:59:59 CLS Outpatient Kell Lakhani [id number] 03/09/2017 08:05:00 03/09/2017 23:59:59 CLS Outpatient Kell Lakhani [id number] 02/26/2017 09:31:00 02/26/2017 23:59:59 CLS Outpatient Jennifer Mccoy [id number] 02/10/2017 07:12:00 02/10/2017 23:59:59 CLS Outpatient Kell Lakhani [id number] 02/03/2017 11:56:00 02/03/2017 23:59:59 CLS Outpatient Jennifer Mccoy [id number] 01/25/2017 11:00:00 01/25/2017 23:59:59 CLS Outpatient Kell Lakhani [id number] 01/24/2017 09:25:00 01/24/2017 23:59:59 CLS Outpatient Kell Lakhani [id number] 01/12/2017 09:02:00 01/12/2017 23:59:59 CLS Outpatient Lyndsay Shetty [id number] 01/07/2017 10:30:00 01/07/2017 23:59:59 CLS Outpatient Kell Lakhani [id number] 10/05/2014 08:15:38 ACT Document Registration
--- NOTE | 2018-06-24 09:04 | ED Hip Pain/Injury ---
General Stated Complaint: FALL, RT HIP PAIN Source: family History of Present Illness Date Seen by Provider: Jun 24, 2018 Time Seen by Provider: 08:45 Timing/Duration: just prior to arrival Other The patient is a pleasant 67-year-old female who presents with family for evaluation of right hip pain. She had a fall earlier this morning and has been having exquisite right hip and since that time. She had previously broken her left hip from a similar fall and was treated at [facility] by Dr. Daniel Velasquez. Her primary care physician is Dr. Colin Child at [facility]. The patient denies hitting her head, losing consciousness, or any other injuries or complaints of pain related to the fall. Allergies and Home Medications Allergies Coded Allergies: Sulfa (Sulfonamide Antibiotics) (Unverified Allergy, Unknown, RASH, 10/03/14 ) codeine (Unverified Allergy, Unknown, VOMITING, 10/03/14) Home Medications Amlodipine Besylate 5 Mg Tablet, 5 MG PO DAILY, (Reported) Citalopram Hydrobromide 10 Mg Tablet, 10 MG PO DAILY, (Reported) Doxycycline Hyclate 100 Mg Capsule, 100 MG PO BID, (Reported) STARTED 10/01/14, FOR 10 DAYS Folic Acid 1 Mg Tablet, 1 MG PO DAILY, (Reported) Furosemide 40 Mg Tablet, 40 MG PO DAILY, (Reported) Hydrocodone Bit/Acetaminophen 1 Tab Tablet, 1 TAB PO Q6H PRN for PAIN, (Reported ) PRN PAIN Hydrocodone Bit/Acetaminophen 1 Tab Tab, 1-2 TAB PO Q4H PRN for PAIN Prescribed by: DUANE KENNEDY on 10/05/14 1150 Levothyroxine Sodium 125 Mcg Tablet, 125 MCG PO DAILY, (Reported) Multivitamins 1 Each Capsule, 1 EACH PO DAILY, (Reported) Nadolol 40 Mg Tablet, 40 MG PO HS, (Reported) Omeprazole 40 Mg Capsule.dr, 40 MG PO BID, (Reported) Ropinirole Hcl 0.5 Mg Tablet, 0.5 MG PO HS, (Reported) Spironolactone 100 Mg Tablet, 100 MG PO DAILY, (Reported) Ursodiol 300 Mg Capsule, 300 MG PO TID, (Reported) Patient Home Medication List Home Medication List Reviewed: Yes Review of Systems Constitutional: no symptoms reported EENTM: no symptoms reported Respiratory: no symptoms reported Cardiovascular: no symptoms reported Gastrointestinal: no symptoms reported Musculoskeletal: joint pain (right hip) Skin: no symptoms reported Psychiatric/Neurological: No Symptoms Reported All Other Systems Reviewed Negative Unless Noted: Yes Past [id number]-Qxfadi-Mggqbg Hx Patient Social History Recent Foreign Travel: No Contact w/Someone Who Travel: No Immunizations Up To Date Date of Pneumonia Vaccine: May 03, 2009 Past Medical History Gastroesophageal Reflux, Liver Disease/Jaundice, Cirrhosis Hypothyroidsim Physical Exam Vital Signs Vital Signs - First Documented 06/24/18 06/24/18 08:45 09:01 Temp 98.1 Pulse 99 Resp 18 B/P (MAP) 106/60 (75) Pulse Ox 98 O2 Delivery Room Air Capillary Refill : Height, Weight, BMI Height: 5'3.00" Weight: 181lbs. oz. 82.696370xj; BMI Method: General Appearance: No Apparent Distress, WD/WN HEENT: PERRL/EOMI, TMs Normal, Normal ENT Inspection, Pharynx Normal Neck: Full Range of Motion, Normal Inspection, Non Tender, Supple Cardiovascular: Regular Rate, Rhythm, No Edema, No Gallop, No JVD Respiratory: Chest Non Tender, Lungs Clear, Normal Breath Sounds, No Accessory Muscle Use, No Respiratory Distress Gastrointestinal: Normal Bowel Sounds, No Pulsatile Mass, Non Tender, Soft Back: Normal Inspection, No Vertebral Tenderness Extremity: Normal Capillary Refill, Normal Inspection, Other (right lateral hip ttp present, right leg is shortened and externally rotated, pelvis is stable , CMS intact distally, b/l lower legs wrapped from chronic wounds) Neurologic/Psychiatric: Alert, Oriented x3 Skin: Normal Color, Warm/Dry Progress/Results/Core Measures Results/Orders Lab Results Laboratory Tests Test 06/24/18 09:30 Range/Units White Blood Count 22.1 H 4.3-11.0 10^3/uL Red Blood Count 3.47 L 4.35-5.85 10^6/uL Hemoglobin 8.3 L 11.5-16.0 G/DL Hematocrit 27 L 35-52 % Mean Corpuscular Volume 78 L 80-99 FL Mean Corpuscular Hemoglobin 24 L 25-34 PG Mean Corpuscular Hemoglobin Concent 31 L 32-36 G/DL Red Cell Distribution Width 17.9 H 10.0-14.5 % Platelet Count 186 130-400 10^3/uL Mean Platelet Volume 10.6 H 7.4-10.4 FL Neutrophils (%) (Auto) 92 H 42-75 % Lymphocytes (%) (Auto) 2 L 12-44 % Monocytes (%) (Auto) 5 0-12 % Eosinophils (%) (Auto) 0 0-10 % Basophils (%) (Auto) 0 0-10 % Neutrophils # (Auto) 20.3 H 1.8-7.8 X 10^3 Lymphocytes # (Auto) 0.4 L 1.0-4.0 X 10^3 Monocytes # (Auto) 1.2 H 0.0-1.0 X 10^3 Eosinophils # (Auto) 0.1 0.0-0.3 10^3/uL Basophils # (Auto) 0.1 0.0-0.1 10^3/uL Prothrombin Time 15.7 H 12.2-14.7 SEC INR Comment 1.2 0.8-1.4 Activated Partial Thromboplast Time 27 24-35 SEC My Orders Orders - LORENA RIVERA DO Pelvis With Right Hip 2-3 View (06/24/18 08:40) Fentanyl Injection (Sublimaze Injection (06/24/18 08:45) Nothing By Mouth (06/24/18 Lunch) Fentanyl Injection (Sublimaze Injection (06/24/18 08:39) Cbc With Automated Diff (06/24/18 08:55) Comprehensive Metabolic Panel (06/24/18 08:55) Protime With Inr (06/24/18 08:55) Partial Thromboplastin Time (06/24/18 08:55) Urinalysis (06/24/18 08:55) Catheter(Urinary) Insert & Ass 03,15 (06/24/18 08:55) Lorazepam Injection (Ativan Injection) (06/24/18 09:15) Manual Differential (06/24/18 09:30) Medications Given in ED Current Medications Medications Dose Ordered Sig/Haydee Route Start Time Stop Time Status Last Admin Dose Admin Fentanyl Citrate 50 mcg ONCE ONCE IVP 06/24/18 08:45 06/24/18 08:46 DC 06/24/18 08:45 50 MCG Lorazepam 0.5 mg ONCE ONCE IVP 06/24/18 09:15 06/24/18 09:16 DC 06/24/18 09:23 0.5 MG Vital Signs/I&O 2/22/19 2/22/19 2/22/19 08:45 09:01 09:40 Temp 98.1 98.1 Pulse 99 83 Resp 18 16 B/P (MAP) 106/60 (75) 103/68 (80) Pulse Ox 98 97 O2 Delivery Room Air Room Air Progress Progress Note : Time: 10:10 Progress Note @1010 - Patient's family reports that their preferred transfer location is [facility]. I contacted the transfer line at this time and Arlet tells me that she will speak with the patient's primary care doctor or the hospitalist and give us a call back. Departure Impression Primary Impression: Closed right hip fracture Disposition: XFER SHT-TRM HOSP Condition: Stable Transfer Time Spoke to Accepting Phy: 10:33 Transfer Progress Notes @1033 - Dr. Shahzad Rivera, hospitalist at [facility], accepts the patient for transfer at this time. He is aware that the chemistries night resulted. The patient is refusing any additional attempts at blood draw. She is stable for transfer at this time. Transfer Facility: [facility] Method of Transfer: EMS Departure-Patient Inst. Referrals: NO,LOCAL PHYSICIAN (PCP/Family) Primary Care Physician LORENA RIVERA DO Jun 24, 2018 09:03
--- NOTE | 2018-06-24 09:04 | Diagnostic Imaging Report ---
INDICATION: Fall right hip pain. Time of exam 8:26 AM There appears to be acute fracture of the right hip. This appears to be intertrochanteric. There is coxa varus deformity. Femoral acetabular alignment is maintained. More chronic appearing deformity of the left hip is noted. There appears to be abundant callus formation present. Dedicated hip films may be useful for further evaluation to evaluate for fracture of the left hip. Rami unremarkable. IMPRESSION: 1. Acute intertrochanteric right hip fracture. 2. Chronic appearing deformity of the left hip although the entire hip is not included on this study. If there is concern for fracture on the left, dedicated hip films could be performed. Dictated by: Dictated on workstation # [id number]
[2018-06-24] MEDS ORDERED: LORazepam INJ 2 MG/ML (ATIVAN) VIAL IVP ONE (09:15)
[2018-06-24 09:40] VITALS: BP 103/68
[2018-06-24 09:56] LABS: WHITE BLOOD COUNT 22.1 10^3/uL (4.3-11.0)
[2018-06-24 09:57] LABS: BASOPHILS % (AUTO) 0 % (0-10); EOSINOPHILS % (AUTO) 0 % (0-10); HEMATOCRIT 27 % (35-52); HEMOGLOBIN 8.3 G/DL (11.5-16.0); LYMPHOCYTES # (AUTO) 0.4 X 10^3 (1.0-4.0); LYMPHOCYTES % (AUTO) 2 % (12-44); MEAN CORPUSCULAR HEMOGLOBIN 24 PG (25-34); MEAN CORPUSCULAR HGB CONC 31 G/DL (32-36); MEAN CORPUSCULAR VOLUME 78 FL (80-99); MEAN PLATELET VOLUME 10.6 FL (7.4-10.4); MONOCYTES # (AUTO) 1.2 X 10^3 (0.0-1.0); MONOCYTES % (AUTO) 5 % (0-12); NEUTROPHILS # (AUTO) 20.3 X 10^3 (1.8-7.8); NEUTROPHILS % (AUTO) 92 % (42-75); PLATELET COUNT 186 10^3/uL (130-400); RED CELL DISTRIBUTION WIDTH 17.9 % (10.0-14.5)
[2018-06-24 09:58] LABS: BASOPHILS # (AUTO) 0.1 10^3/uL (0.0-0.1); EOSINOPHILS # (AUTO) 0.1 10^3/uL (0.0-0.3)
[2018-06-24 10:27] LABS: INR 1.2 (0.8-1.4); PROTHROMBIN TIME PATIENT 15.7 SEC (12.2-14.7)
[2018-06-24 10:59] VITALS: BP 102/87
[2018-06-24 10:59] LABS: ATYPICAL LYMPHOCYTES 1 %; BAND NEUTROPHILS 7 %; BASOPHILS % (MANUAL) 0 %; EOSINOPHILS % (MANUAL) 0 %; LYMPHOCYTES % (MANUAL) 1 %; METAMYELOCYTES % 1 %; MONOCYTES % (MANUAL) 1 %; NEUTROPHILS % (MANUAL) 89 %
[2018-06-24 11:00] LABS: ANISOCYTOSIS SLIGHT; POIKILOCYTOSIS 2+
[2018-06-24 11:12] VITALS: BP 102/87
--- NOTE | 2018-06-24 11:17 | NUR ---
Patient left with [facility] at this time en route to [facility].
== END 2018-06-24 11:12 | disposition short-term general hospital (02) ==
LOC: EDUNIT# 08:36 → ER FS 08:39
DX: S72.141A Displaced intertrochanteric fracture of right femur, initial encounter for closed fracture (principal); K21.9 Gastro-esophageal reflux disease without esophagitis; E03.9 Hypothyroidism, unspecified; Z87.19 Personal history of other diseases of the digestive system; Z88.2 Allergy status to sulfonamides; Z88.5 Allergy status to narcotic agent; W19.XXXA Unspecified fall, initial encounter
CPT/HCPCS: 36415; 73502; 85007; 85027; 85610; 85730; 96374; 96375; 96376